=== PATIENT | female | born 1955 | race Caucasian/White ===

== ENCOUNTER 2024-09-22 12:57 | Inpatient (IN) | payer MEDICARE, SELFPAY ==
--- NOTE | ~2024-09-22 | CT_ITS ---
EXAMINATION: CT abdomen pelvis w con DATE: 09/22/2024 15:41 INDICATION: Lower abdominal pain TECHNIQUE: Computed tomography (CT) of the abdomen and pelvis was performed with 100 mL Omnipaque-350 intravenous contrast. Automated exposure control and iterative reconstruction technique were employe d. The dose-length product was 802.47 mGy-cm. COMPARISON: None FINDINGS: Mild discoid atelectasis at the basilar left lower lobe. Heart size is normal. No pericardial or pleu ral effusion. Small sliding-type hiatal hernia. Liver, gallbladder, spleen, pancreas and right adrena l gland are normal. 2.1 cm left adrenal nodule. There are parapelvic cysts at both kidneys along with couple subcentimeter low-attenuation likely cysts at the right kidney which are too small to definit ively characterize. Bladder, anteverted and retroflexed uterus and bilateral adnexa are unremarkable. There are small amount of free intraperitoneal gas underlying the right hemidiaphragm. Additional sma ll amounts of gas and nonloculated free intraperitoneal fluid are seen in the right lower quadrant no sameer region of the cecum. Stranding does not appear centered around the normal-appearing appendix. The re is edematous wall thickening of the adjacent terminal ileum. There are also multiple diverticula a long the sigmoid colon which also passes near the region of free fluid and gas. No bowel obstruction. No pathologically enlarged abdominal or pelvic lymphadenopathy. Mild to moderate upper lumbar predom inant spondylosis. Mild left and mild to moderate right hip osteoarthritis. IMPRESSION: 1. Small amount of free intraperineal gas and nonloculated free intraperitoneal fluid in the right pe lvis was performed on the cecum and terminal ileum, latter demonstrating some associated wall thicken ing. This most likely related to perforated diverticulitis. Differential includes acute appendicitis although the appendix appears normal and is located in the periphery of the region of stranding and w ould consider this less likely. Differential would also include terminal ileitis such as in the setti ng of Crohn's disease. 2. Small sliding-type hiatal hernia. Reviewed, dictated and finalized at location A. IMPRESSION: 1. Small amount of free intraperineal gas and nonloculated free intraperitoneal fluid in the right pelvis was performed on the cecum and terminal ileum, latte r demonstrating some associated wall thickening. This most likely related to pe rforated diverticulitis. Differential includes acute appendicitis although the appendix appears normal and is located in the periphery of the region of strand ing and would consider this less likely. Differential would also include termin al ileitis such as in the setting of Crohn's disease. 2. Small sliding-type hiatal hernia.
[2024-09-22 13:24] VITALS: BP 147/85; PULSE 130; RESP 20; TEMP 36.5; O2SAT 99
--- NOTE | 2024-09-22 13:28 | ECG_ITS ---
Test Date: 2024-09-22 13:32:13 Measurements Intervals [place] Rate: 118 P: 10 [place]: 112 QRS: -11 QRSD: 88 T: 12 QT: 301 QTc: 422 Interpretive Statements SINUS TACHYCARDIA VOLTAGE CRITERIA FOR LVH BORDERLINE R WAVE PROGRESSION, ANTERIOR LEADS MINIMAL Q WAVES- HIGH LATERAL LEADS BORDERLINE T WAVE ABNORMALITY- INFERIOR LEADS ABNORMAL ECG No previous ECG available for comparison Electronically Signed On 09-22-2024 14:29:41 CDT by Gulshan Toledo D.O.
[2024-09-22 14:37] LABS: Basophils Percent Auto 0.2 % (0.2-1.2); Eosinophils Percent Auto 0.2 % (0-4.4); Hematocrit 39.4 % (37.0-47.0); Hemoglobin 12.8 g/dL (12.0-15.0); Immature Granulocyte Absolute 0.06 K/mm3 (0.00-0.031); Immature Granulocyte Percent A 0.3 % (0-0.5); Lymphocytes Absolute Auto 0.77 K/mm3 (0.9-3.2); Lymphocytes Percent Auto 4.4 % (18.3-44.2); Mean Corpuscular HGB Conc 32.5 g/dl (32-36); Mean Corpuscular Hemoglobin 29.1 pg (26-34); Mean Corpuscular Volume 89.5 fl (80-100); Mean Platelet Volume 9.8 fl (7.4-10.4); Monocytes Absolute Auto 0.8 K/mm3 (0.1-0.6); Monocytes Percent Auto 4.8 % (2.6-8.5); Neutrophils Absolute Auto 15.6 K/mm3 (1.3-6.7); Neutrophils Percent Auto 90.1 % (45.5-73.1); Platelet Count Result 438 k/mm3 (150-375); Red Cell Distribution Width 12.8 % (11.5-14.5); White Blood Count 17.3 K/mm3 (4.5-10.0)
[2024-09-22] MEDS: MORPHINE SULFATE (*CRX) 4 MG/ML INJ IV PUSH (15:05)
[2024-09-22] MEDS: SODIUM CHLORIDE 0.9% IV 1,000 ML 999 ML IV CONT (15:05)
[2024-09-22] MEDS: ONDANSETRON INJ 4 MG/2 ML VIAL IV PUSH (15:05)
[2024-09-22 15:22] LABS: Alanine Aminotransferase 40 U/L (6-35); Albumin Level 4.2 g/dL (3.5-5.1); Alkaline Phosphatase 181 U/L (38-126); Anion Gap 16 mmol/L (4-12); Aspartate Amino Transferase 47 U/L (14-36); Blood Urea Nitrogen 14 mg/dL (7-17); Calcium 9.6 mg/dL (8.4-10.2); Carbon Dioxide 21 mmol/L (22-30); Chloride 100 mmol/L (98-107); Estimated CRCL calculation 59 ml/min; Estimated Glomerular Filt Rate 58; Glucose 114 mg/dL (65-110); Lipase 30 U/L (23-300); Potassium 3.9 mmol/L (3.4-5.0); Sodium 137 mmol/L (137-145); Total Protein 8.5 g/dL (6.3-8.2)
[2024-09-22 15:30] LABS: Add Urine Microscopic? YES; Appearance Urine Turbid (Clear); Bacteria Urine 4+ /hpf; Bilirubin Urine 2+ (Negative); Blood Urine Trace (Negative); Color Urine Dark Yellow (Yellow); Glucose Urine UA Negative (Negative); Ketones Urine 4+ mg/dL (Negative); Leukocyte Esterase Ur 2+ LEU/UL (Negative); Need Manual Microscopic Reviewed; Nitrate Urine Negative (Negative); Non Pathogenic Casts >20; Protein Urine 2+ mg/dL (Negative); Specific Grav Ur 1.027 (1.001-1.035); Squamous Epithelial Cell Urine Many /hpf (Few); WBC Urine 51-100 /hpf (0-3)
--- NOTE | 2024-09-22 16:06 | ED.ABDPAIN ---
HPI - Abdominal Pain General Chief Complaint: Abdominal Pain <SHIVAM Resendiz Last Filed: 09/22/24 17:09> Stated Complaint: abdominal pain since Friday. Nausea and diarrhea <SHIVAM Resendiz Last Filed: 09/22/24 17:09> Time Seen by Provider: 09/22/24 14:59 <Inocencia Melendez PA-C - Last Filed: 09/22/24 17:09> Source: patient <SHIVAM Resendiz Last Filed: 09/22/24 17:09> Mode of arrival: ambulatory <SHIVAM Resendiz Last Filed: 09/22/24 17:09> Limitations: no limitations <SHIVAM Resendiz Last Filed: 09/22/24 17:09> History of Present Illness HPI narrative: This is a 69-year-old female that presents emergency department for lower abdominal pain. Ongoing over the last 3 days. Reports is now localized to the right lower quadrant. Reports some diarrhea. Reports a similar episode a couple of weeks ago which resolved on its own. Denies fevers, vomiting <SHIVAM Resendiz Last Filed: 09/22/24 17:09> Related Data Allergies/Adverse Reactions: Allergies Allergy/AdvReac Type Severity Reaction Status Date / Time No Known Allergies Allergy Unverified 05/26/14 21:55 <Inocencia Melendez PA-C - Last Filed: 09/22/24 17:09> Review of Systems Review of Systems: All systems reviewed & are unremarkable except as noted in HPI and below <Inocencia Melendez PA-C - Last Filed: 09/22/24 17:09> PMFSH Past Medical History Medical History: Medical History (Updated 09/22/24 @ 17:45 by Adrienne Tan, GUILLERMO) No active medical problems <SHIVAM Resendiz Last Filed: 09/22/24 17:09> Exam Narrative: GENERAL: Well-appearing, well-nourished, and in no acute distress. HEAD: Normocephalic, atraumatic. EYES: EOMI. CHEST: Clear to auscultation. No respiratory distress. No wheezes rales or rhonchi HEART: Regular rate and rhythm. No murmur heard. Normal peripheral pulses. ABDOMEN: Soft, nontender, nondistended, normal active bowel sounds. EXTREMITIES: Normal range of motion. No edema. SKIN: Warm, dry, no rash. NEURO: No focal deficits. Alert and oriented x3. PSYCH: Normal mood and affect <Inocencia Melendez PA-C - Last Filed: 09/22/24 17:09> Course Course Emergency Course: Patient updated on her workup and need for admission <Inocencia Melendez PA-C - Last Filed: 09/22/24 17:09> ENTERTAINMENT AGENT/PA Physician Supervision This visit was performed by both a physician and an APC. I performed all aspects of the MDM as documented. <Duy Cruz MD - Last Filed: 09/22/24 19:08> Consultations Consultation #1: Spoke with general surgery who will consult <Inocencia Melendez PA-C - Last Filed: 09/22/24 17:09> Date: 09/22/24 <Inocencia Melendez PA-C - Last Filed: 09/22/24 17:09> Consultation #2: Spoke with hospitalist about patient and workup who accepts admission <Inocencia Melendez PA-C - Last Filed: 09/22/24 17:09> Date: 09/22/24 <SHIVAM Resendiz Last Filed: 09/22/24 17:09> Vital Signs Vital signs: Vital Signs Temperature 97.7 F 09/22/24 13:24 Pulse Rate 130 H 09/22/24 13:24 Respiratory Rate 20 09/22/24 13:24 Blood Pressure 147/85 H 09/22/24 13:24 Pulse Oximetry 99 09/22/24 13:24 Oxygen Delivery Room Air 09/22/24 13:24 Temperature 97.7 F 09/22/24 13:24 Pulse Rate 130 H 09/22/24 13:24 Respiratory Rate 20 09/22/24 13:24 Blood Pressure 147/85 H 09/22/24 13:24 Pulse Oximetry 99 09/22/24 13:24 Oxygen Delivery Room Air 09/22/24 13:24 <Inocencia Melendez PA-C - Last Filed: 09/22/24 17:09> Vital Signs Temperature 97.7 F 09/22/24 13:24 Pulse Rate 130 H 09/22/24 13:24 Respiratory Rate 20 09/22/24 13:24 Blood Pressure 147/85 H 09/22/24 13:24 Pulse Oximetry 99 09/22/24 13:24 Oxygen Delivery Room Air 09/22/24 13:24 Temperature 97.7 F 09/22/24 13:24 Pulse Rate 130 H 09/22/24 13:24 Respiratory Rate 20 09/22/24 13:24 Blood Pressure 147/85 H 09/22/24 13:24 Pulse Oximetry 99 09/22/24 13:24 Oxygen Delivery Room Air 09/22/24 13:24 <Duy Cruz MD - Last Filed: 09/22/24 19:08> MDM - Abdominal Pain MDM Narrative Medical decision making narrative: Patient presents to the emergency department for right lower quadrant abdominal pain. Ongoing over the last 3 days. Patient is afebrile and nontoxic appearing. Tachycardic upon arrival, this normalized with IV fluids. CBC with leukocytosis to 17.3. Metabolic panel with evidence of dehydration. Patient hydrated with 2 L of IV fluids in the ED. Urine with evidence of infection. This was sent for culture. Blood cultures obtained, patient started on IV antibiotics. Lactic acid is not elevated. CT abdomen pelvis shows perforated diverticulitis versus appendicitis. Spoke with general surgery who will consult. Spoke with hospitalist about patient and workup who accepts admission <Inocencia Melendez PA-C - Last Filed: 09/22/24 17:09> Differential Diagnosis Differential diagnosis: Likely acute appendicitis and diverticulitis <Inocencia Melendez PA-C - Last Filed: 09/22/24 17:09> Lab Data Attestation: I reviewed the patient's lab results. <Inocencia Melendez PA-C - Last Filed: 09/22/24 17:09> Result diagrams: 09/22/24 14:30 09/22/24 15:04 <Inocencia Melendez PA-C - Last Filed: 09/22/24 17:09> Labs: Lab Results 09/22/24 09/22/24 09/22/24 Range/Units 14:30 15:02 15:04 WBC 17.3 H (4.5-10.0) K/mm3 RBC 4.40 (4.2-5.4) M/mm3 Hgb 12.8 (12.0-15.0) g/dL Hct 39.4 (37.0-47.0) % MCV 89.5 (80-100) fl MCH 29.1 (26-34) pg MCHC 32.5 (32-36) g/dl RDW 12.8 (11.5-14.5) % Plt Count 438 H (150-375) k/mm3 MPV 9.8 (7.4-10.4) fl Immature Gran % (Auto) 0.3 (0-0.5) % Neut % (Auto) 90.1 H (45.5-73.1) % Lymph % (Auto) 4.4 L (18.3-44.2) % [place] % (Auto) 4.8 (2.6-8.5) % Eos % (Auto) 0.2 (0-4.4) % Baso % (Auto) 0.2 (0.2-1.2) % Lymph # (Auto) 0.77 L (0.9-3.2) K/mm3 [place] # (Auto) 0.8 H (0.1-0.6) K/mm3 Eos # (Auto) 0.0 (0-0.3) K/mm3 Baso # (Auto) 0.0 (0.0-0.1) K/mm3 Abs Immat Gran (auto) 0.06 H (0.00-0.031) K/mm3 Absolute Neuts (auto) 15.6 H (1.3-6.7) K/mm3 Absolute Nucleated RBC 0.000 (0.0-0.012) K/mm3 Nucleated RBC % 0.0 (0.0-0.2) % Sodium 137 (137-145) mmol/L Potassium 3.9 (3.4-5.0) mmol/L Chloride 100 (98-107) mmol/L Carbon Dioxide 21 L (22-30) mmol/L Anion Gap 16 H (4-12) mmol/L BUN 14 (7-17) mg/dL Creatinine 0.95 (0.7-1.0) mg/dL Estim Creat Clear Calc 59 ml/min Estimated GFR 58 L (59 - ) Glucose 114 H (65-110) mg/dL Lactic Acid (0.7-2.0) mmol/L Calcium 9.6 (8.4-10.2) mg/dL Total Bilirubin 1.0 (0.2-1.3) mg/dL AST 47 H (14-36) U/L ALT 40 H (6-35) U/L Alkaline Phosphatase 181 H (38-126) U/L Total Protein 8.5 H (6.3-8.2) g/dL Albumin 4.2 (3.5-5.1) g/dL Lipase 30 (23-300) U/L Urine Color Dark yellow (Yellow) Urine Appearance Turbid H (Clear) Urine pH 5.0 (5.0-9.0) Ur Specific [place] 1.027 (1.001-1.035) Urine Protein 2+ H (Negative) mg/dL Urine Glucose (UA) Negative (Negative) mg/dL Urine Ketones 4+ H (Negative) mg/dL Ur Blood (Man) Trace (Negative) Urine Nitrate Negative (Negative) Urine Bilirubin 2+ H (Negative) Urine Urobilinogen 1.0 (<2.0) mg/dL Add Ur Microanalysis Reviewed Leukocyte Esterase Rfl 2+ H (Negative) VANNESSA/UL Urine RBC 6-10 H (0-2) /hpf Urine WBC 51-100 H (0-3) /hpf Ur Squamous Epith Cells Many H (Few) /hpf Urine Bacteria 4+ H /hpf Urine Casts >20 06/25/25 Range/Units 16:07 WBC (4.5-10.0) K/mm3 RBC (4.2-5.4) M/mm3 Hgb (12.0-15.0) g/dL Hct (37.0-47.0) % MCV (80-100) fl MCH (26-34) pg MCHC (32-36) g/dl RDW (11.5-14.5) % Plt Count (150-375) k/mm3 MPV (7.4-10.4) fl Immature Gran % (Auto) (0-0.5) % Neut % (Auto) (45.5-73.1) % Lymph % (Auto) (18.3-44.2) % [place] % (Auto) (2.6-8.5) % Eos % (Auto) (0-4.4) % Baso % (Auto) (0.2-1.2) % Lymph # (Auto) (0.9-3.2) K/mm3 [place] # (Auto) (0.1-0.6) K/mm3 Eos # (Auto) (0-0.3) K/mm3 Baso # (Auto) (0.0-0.1) K/mm3 Abs Immat Gran (auto) (0.00-0.031) K/mm3 Absolute Neuts (auto) (1.3-6.7) K/mm3 Absolute Nucleated RBC (0.0-0.012) K/mm3 Nucleated RBC % (0.0-0.2) % Sodium (137-145) mmol/L Potassium (3.4-5.0) mmol/L Chloride (98-107) mmol/L Carbon Dioxide (22-30) mmol/L Anion Gap (4-12) mmol/L BUN (7-17) mg/dL Creatinine (0.7-1.0) mg/dL Estim Creat Clear Calc ml/min Estimated GFR (59 - ) Glucose (65-110) mg/dL Lactic Acid 0.9 (0.7-2.0) mmol/L Calcium (8.4-10.2) mg/dL Total Bilirubin (0.2-1.3) mg/dL AST (14-36) U/L ALT (6-35) U/L Alkaline Phosphatase (38-126) U/L Total Protein (6.3-8.2) g/dL Albumin (3.5-5.1) g/dL Lipase (23-300) U/L Urine Color (Yellow) Urine Appearance (Clear) Urine pH (5.0-9.0) Ur Specific [place] (1.001-1.035) Urine Protein (Negative) mg/dL Urine Glucose (UA) (Negative) mg/dL Urine Ketones (Negative) mg/dL Ur Blood (Man) (Negative) Urine Nitrate (Negative) Urine Bilirubin (Negative) Urine Urobilinogen (<2.0) mg/dL Add Ur Microanalysis Leukocyte Esterase Rfl (Negative) VANNESSA/UL Urine RBC (0-2) /hpf Urine WBC (0-3) /hpf Ur Squamous Epith Cells (Few) /hpf Urine Bacteria /hpf Urine Casts <Inocencia Melendez PA-C - Last Filed: 09/22/24 17:09> Lab Results 09/22/24 09/22/24 09/22/24 Range/Units 14:30 15:02 15:04 WBC 17.3 H (4.5-10.0) K/mm3 RBC 4.40 (4.2-5.4) M/mm3 Hgb 12.8 (12.0-15.0) g/dL Hct 39.4 (37.0-47.0) % MCV 89.5 (80-100) fl MCH 29.1 (26-34) pg MCHC 32.5 (32-36) g/dl RDW 12.8 (11.5-14.5) % Plt Count 438 H (150-375) k/mm3 MPV 9.8 (7.4-10.4) fl Immature Gran % (Auto) 0.3 (0-0.5) % Neut % (Auto) 90.1 H (45.5-73.1) % Lymph % (Auto) 4.4 L (18.3-44.2) % [place] % (Auto) 4.8 (2.6-8.5) % Eos % (Auto) 0.2 (0-4.4) % Baso % (Auto) 0.2 (0.2-1.2) % Lymph # (Auto) 0.77 L (0.9-3.2) K/mm3 [place] # (Auto) 0.8 H (0.1-0.6) K/mm3 Eos # (Auto) 0.0 (0-0.3) K/mm3 Baso # (Auto) 0.0 (0.0-0.1) K/mm3 Abs Immat Gran (auto) 0.06 H (0.00-0.031) K/mm3 Absolute Neuts (auto) 15.6 H (1.3-6.7) K/mm3 Absolute Nucleated RBC 0.000 (0.0-0.012) K/mm3 Nucleated RBC % 0.0 (0.0-0.2) % Sodium 137 (137-145) mmol/L Potassium 3.9 (3.4-5.0) mmol/L Chloride 100 (98-107) mmol/L Carbon Dioxide 21 L (22-30) mmol/L Anion Gap 16 H (4-12) mmol/L BUN 14 (7-17) mg/dL Creatinine 0.95 (0.7-1.0) mg/dL Estim Creat Clear Calc 59 ml/min Estimated GFR 58 L (59 - ) Glucose 114 H (65-110) mg/dL Lactic Acid (0.7-2.0) mmol/L Calcium 9.6 (8.4-10.2) mg/dL Total Bilirubin 1.0 (0.2-1.3) mg/dL AST 47 H (14-36) U/L ALT 40 H (6-35) U/L Alkaline Phosphatase 181 H (38-126) U/L Total Protein 8.5 H (6.3-8.2) g/dL Albumin 4.2 (3.5-5.1) g/dL Lipase 30 (23-300) U/L Urine Color Dark yellow (Yellow) Urine Appearance Turbid H (Clear) Urine pH 5.0 (5.0-9.0) Ur Specific [place] 1.027 (1.001-1.035) Urine Protein 2+ H (Negative) mg/dL Urine Glucose (UA) Negative (Negative) mg/dL Urine Ketones 4+ H (Negative) mg/dL Ur Blood (Man) Trace (Negative) Urine Nitrate Negative (Negative) Urine Bilirubin 2+ H (Negative) Urine Urobilinogen 1.0 (<2.0) mg/dL Add Ur Microanalysis Reviewed Leukocyte Esterase Rfl 2+ H (Negative) VANNESSA/UL Urine RBC 6-10 H (0-2) /hpf Urine WBC 51-100 H (0-3) /hpf Ur Squamous Epith Cells Many H (Few) /hpf Urine Bacteria 4+ H /hpf Urine Casts >20 06/25/25 Range/Units 16:07 WBC (4.5-10.0) K/mm3 RBC (4.2-5.4) M/mm3 Hgb (12.0-15.0) g/dL Hct (37.0-47.0) % MCV (80-100) fl MCH (26-34) pg MCHC (32-36) g/dl RDW (11.5-14.5) % Plt Count (150-375) k/mm3 MPV (7.4-10.4) fl Immature Gran % (Auto) (0-0.5) % Neut % (Auto) (45.5-73.1) % Lymph % (Auto) (18.3-44.2) % [place] % (Auto) (2.6-8.5) % Eos % (Auto) (0-4.4) % Baso % (Auto) (0.2-1.2) % Lymph # (Auto) (0.9-3.2) K/mm3 [place] # (Auto) (0.1-0.6) K/mm3 Eos # (Auto) (0-0.3) K/mm3 Baso # (Auto) (0.0-0.1) K/mm3 Abs Immat Gran (auto) (0.00-0.031) K/mm3 Absolute Neuts (auto) (1.3-6.7) K/mm3 Absolute Nucleated RBC (0.0-0.012) K/mm3 Nucleated RBC % (0.0-0.2) % Sodium (137-145) mmol/L Potassium (3.4-5.0) mmol/L Chloride (98-107) mmol/L Carbon Dioxide (22-30) mmol/L Anion Gap (4-12) mmol/L BUN (7-17) mg/dL Creatinine (0.7-1.0) mg/dL Estim Creat Clear Calc ml/min Estimated GFR (59 - ) Glucose (65-110) mg/dL Lactic Acid 0.9 (0.7-2.0) mmol/L Calcium (8.4-10.2) mg/dL Total Bilirubin (0.2-1.3) mg/dL AST (14-36) U/L ALT (6-35) U/L Alkaline Phosphatase (38-126) U/L Total Protein (6.3-8.2) g/dL Albumin (3.5-5.1) g/dL Lipase (23-300) U/L Urine Color (Yellow) Urine Appearance (Clear) Urine pH (5.0-9.0) Ur Specific [place] (1.001-1.035) Urine Protein (Negative) mg/dL Urine Glucose (UA) (Negative) mg/dL Urine Ketones (Negative) mg/dL Ur Blood (Man) (Negative) Urine Nitrate (Negative) Urine Bilirubin (Negative) Urine Urobilinogen (<2.0) mg/dL Add Ur Microanalysis Leukocyte Esterase Rfl (Negative) VANNESSA/UL Urine RBC (0-2) /hpf Urine WBC (0-3) /hpf Ur Squamous Epith Cells (Few) /hpf Urine Bacteria /hpf Urine Casts <Duy Cruz MD - Last Filed: 09/22/24 19:08> Imaging Data Radiologist's impression: ITS Impressions Abdomen/Pelvis CT 09/22/24 15:42 IMPRESSION: 1. Small amount of free intraperineal gas and nonloculated free intraperitoneal fluid in the right pelvis was performed on the cecum and terminal ileum, latter demonstrating some associated wall thickening. This most likely related to perforated diverticulitis. Differential includes acute appendicitis although the appendix appears normal and is located in the periphery of the region of stranding and would consider this less likely. Differential would also include terminal ileitis such as in the setting of Crohn's disease. 2. Small sliding-type hiatal hernia. <Inocencia Melendez PA-C - Last Filed: 09/22/24 17:09> ITS Impressions Abdomen/Pelvis CT 09/22/24 15:42 IMPRESSION: 1. Small amount of free intraperineal gas and nonloculated free intraperitoneal fluid in the right pelvis was performed on the cecum and terminal ileum, latter demonstrating some associated wall thickening. This most likely related to perforated diverticulitis. Differential includes acute appendicitis although the appendix appears normal and is located in the periphery of the region of stranding and would consider this less likely. Differential would also include terminal ileitis such as in the setting of Crohn's disease. 2. Small sliding-type hiatal hernia. <Duy Cruz MD - Last Filed: 09/22/24 19:08> Critical Care Time Critical Care Time Critical Care Time: No <SHIVAM Resendiz Last Filed: 09/22/24 17:09> Discharge Plan Discharge Clinical Impression: Diverticulitis of colon with perforation <SHIVAM Resendiz Last Filed: 09/22/24 17:09> Patient Disposition: Still a Patient <SHIVAM Resendiz Last Filed: 09/22/24 17:09> Condition: Stable <Inocencia Melendez PA-C - Last Filed: 09/22/24 17:09>
[2024-09-22] MEDS: LACTATED RINGERS 1,000 ML 999 ML IV CONT (16:21)
[2024-09-22] MEDS: PIPERACILLN/TAZ 3.375GM/NS50ML 3.375 GM/50 ML BAG IVPB (16:22)
[2024-09-22 16:26] LABS: Lactic Acid Reflex 0.9 mmol/L (0.7-2.0)
--- NOTE | 2024-09-22 17:10 | P.HP_ITS ---
H&P: HPI History of Present Illness Date/Time: 09/22/24 17:10 Chief Complaint: Abdominal Pain Narrative: 69 y/o F with no significant PMH presents here with lower abdominal pain. The patient presents here from home for further evaluation of right lower quadrant abdominal pain. She reports onset 2 days ago. Initially the pain was across her entire lower abdomen, as time has progressed it has moved to adjust the right lower quadrant. She describes the pain as dull, radiating/nonradiating, constant but can vary in severity, aggravated by ambulation - becomes sharper, and alleviated by rest/lack of movement. She reports she had a similar episode in early July but resolved without intervention and patient was not evaluated at that time - lasted around 4-5 days. She reports accompanying a few episodes of diarrhea on Friday when symptoms first started but has since resolved. Denies fever, chills, body aches, constipation or diaphoresis. She reports no hisotry of abdominal surgery history or signi ficant GI history. Initial VS at presentation: 97.7? F, HR 130, R 20, 147/85, and 99% on RA. ED workup showed: WBC 7 3.3, glucose 114, lactic 0.9, creatinine 0.95 and GFR 58, AST 47/ALT 40, UA showed contaminant versus infection. CT of the abdomen/pelvis showed small amount of free intraperineal gas and nonloculated free intraperitoneal fluid in the right pelvis was performed on the cecum and terminal ileum, latter demonstrating some associated wall thickening. This most likely related to perforated diverticulitis and a small sliding-type hiatal hernia. Review of Systems Review of Systems: All systems reviewed & are unremarkable except as noted in HPI and below [facility] Past Medical History Medical History No active medical problems Social History Social History Alcohol intake: never Substance use: never Substance use type: does not use Do You Feel Safe in your Home?: Yes Lack of Transportation: No Lack of Food: Never True Current Housing: I Have Housing Concerned About Future Housing: No Difficulty Paying Gas/Electric Bills: No Difficulty Paying for Meds: No Currently Unemployed: No Education: Master's Degree or Higher Difficulty w/ Childcare or Family Care: No Spiritual care concerns: No Meds Home Medications and Allergies Home Medications ?Medication ?Instructions ?Recorded ?Confirmed ?Type No Home Medications 09/22/24 09/22/24 History Allergies Allergy/AdvReac Type Severity Reaction Status Date / Time No Known Allergies Allergy Unverified 05/26/14 21:55 Vital Signs Vital Signs - 24 hr 09/22/24 13:24 Temperature 97.7 F Pulse Rate 130 H Respiratory Rate 20 Blood Pressure 147/85 H Pulse Oximetry 99 Oxygen Delivery Room Air Exam Const: General: comfortable and no acute distress Other: , female, nontoxic appearance HENMT: Face/Nose/Sinus: Normal nares present Mouth: Yes moist mucous membranes Eyes: General: appearance normal, both eyes and all related structures Sclera: sclerae normal Pupils: Equal, round and reactive pupils present EOM: EOMs intact bilaterally Resp: Effort & Inspection: normal respiratory effort Auscultation: clear to auscultation bilaterally Cardio: Rate: regular rate Rhythm: regular rhythm Other: S1-S2 present without murmur, rub, ectopy GI: Other: mild tenderness in the RLQ. Abdomen soft and nondistended. Hypoactive bowel sounds in all quadrants, quiet. Skin: General skin exam: normal color and no rashes or lesions noted Wounds: no wounds Neuro: Speech: normal speech Motor exam (neuro): 5/5 motor strength present throughout Sensory Exam: normal sensation Other: A&O x4 Extrem: General: normal to inspection Psych: Mental Status: mental status grossly normal Affect: normal affect Other: Good insight and judgment, pleasant H&P: Results Labs Labs: Short CBC 09/22/24 Range/Units 14:30 WBC 17.3 H (4.5-10.0) K/mm3 Hgb 12.8 (12.0-15.0) g/dL Hct 39.4 (37.0-47.0) % Plt Count 438 H (150-375) k/mm3 BMP 09/22/24 15:04 Sodium 137 Potassium 3.9 Chloride 100 Carbon Dioxide 21 L BUN 14 Creatinine 0.95 Glucose 114 H Calcium 9.6 Liver Function 09/22/24 Range/Units 15:04 Total Bilirubin 1.0 (0.2-1.3) mg/dL AST 47 H (14-36) U/L ALT 40 H (6-35) U/L Alkaline Phosphatase 181 H (38-126) U/L Albumin 4.2 (3.5-5.1) g/dL Urine 09/22/ Range/Units 15:02 Urine Color Dark yellow (Yellow) Urine Appearance Turbid H (Clear) Urine pH 5.0 (5.0-9.0) Ur Specific [place] 1.027 (1.001-1.035) Urine Protein 2+ H (Negative) mg/dL Urine Glucose (UA) Negative (Negative) mg/dL Assessment and Plan Assessment and plan (1) Diverticulitis of colon with perforation: Code(s): K57.20 - Diverticulitis of large intestine with perforation and abscess without bleeding Status: Acute Assessment and Plan: - CT abd/pelvis: 1. Small amount of free intraperineal gas and nonloculated free intraperitoneal fluid in the right pelvis was performed on the cecum and terminal ileum, latter demonstrating some associated wall thickening. This most likely related to perforated diverticulitis. Differential includes acute appendicitis although the appendix appears normal and is located in the periphery of the region of stranding and would consider this less likely. Differential would also include terminal ileitis such as in the setting of Crohn's disease. 2. Small sliding-type hiatal hernia. - started on Zosyn on 09/22 - general surgery consulted - IV fluids: 1L bolus, now on 125 mL/hr. Monitor I&Os. - clear liquid diet, NPO at midnight in case of need for surgical management - pain medication prn - daily clinical reassessment for improvement (2) UTI (urinary tract infection): Qualifiers: Hematuria presence: without hematuria Urinary tract infection type: acute cystitis Qualified Code(s): N30.00 - Acute cystitis without hematuria Code(s): N39.0 - Urinary tract infection, site not specified Status: Suspected Assessment and Plan: - UA: Turbid, 2+ protein, 4+ ketones stoma 2+ bilirubin, 2+ leuks, 6-10 RBC, 51-100 WBC, many epithelial cells, 4+ bacteria. Contaminant versus infection. - UC pending - previous micro reviewed, not available for review - started on Zosyn on 09/22 due to concurrent diverticulitis with perforation. Plan Diet: Clear liquids, NPO midnight GI Prophylaxis: Not currently applicable DVT Prophylaxis: SCDs IV fluids: 1L bolus, now on 125 mL/hr Lines/Tubes: Peripheral IV Code Status: Full code Quality VTE Prophylaxis VTE prophylaxis: mechanical ordered Hospitalist MIPS Advance Care Plan I have confirmed that the patient's Advanced Care Plan is present, code status is documented, or surrogate decision maker is listed in patient medical record.: Yes Medication Reconciliation I have utilized all available resources to obtain, update and review the patients current medications (includes all prescriptions, OTC, herbals, cannabis, and nutritional supplements).: Yes
--- NOTE | 2024-09-22 18:20 | PC.NURSE ---
This patient, Cristiana Schwarz, was admitted to [facility] Surg Room 313-01 at 1820. Patient/family oriented to hospital policies and general routines including ID bracelet, bed and alarms, visiting hours, pain management, procedures, bathroom and other care routines, personal items, smoking policy, room service/diet, and visiting hours. Information on how to activate the Rapid Response Team has been discussed. Patient/Family are encouraged to report perceived risks to care and to ask questions if they do not understand what they are told or what they should do.
[2024-09-22] MEDS: SODIUM CHLORIDE 0.9% IV 1,000 ML 125 ML IV CONT (18:34)
[2024-09-22 19:06] VITALS: BMI 31.9
[2024-09-22 21:00] VITALS: BP 154/88; PULSE 98; RESP 20; TEMP 36.6; O2SAT 97
[2024-09-23] MEDS: PIPERACILLN/TAZ 3.375GM/NS50ML 3.375 GM/50 ML BAG IVPB ×4 (00:31→17:45)
[2024-09-23] MEDS: SODIUM CHLORIDE 0.9% IV 1,000 ML 125 ML IV CONT ×2 (02:48→11:37)
--- NOTE | 2024-09-23 03:15 | PC.NURSE ---
On 09/23/24, the Graduate Nurse, Magali, provided care and completed [employer] documentation on this patient with this nurse available for questions and supervised care. I have reviewed Magali's documentation and agree with the findings.
[2024-09-23 06:00] VITALS: BP 121/56; PULSE 74; RESP 16; TEMP 36.1; O2SAT 100
[2024-09-23 06:46] LABS: Basophils Percent Auto 0.2 % (0.2-1.2); Eosinophils Absolute Auto 0.1 K/mm3 (0-0.3); Eosinophils Percent Auto 1.1 % (0-4.4); Hematocrit 32.6 % (37.0-47.0); Hemoglobin 10.1 g/dL (12.0-15.0); Immature Granulocyte Absolute 0.07 K/mm3 (0.00-0.031); Immature Granulocyte Percent A 0.6 % (0-0.5); Lymphocytes Absolute Auto 1.27 K/mm3 (0.9-3.2); Lymphocytes Percent Auto 11.7 % (18.3-44.2); Mean Corpuscular Hemoglobin 28.8 pg (26-34); Mean Corpuscular Volume 92.9 fl (80-100); Monocytes Absolute Auto 0.8 K/mm3 (0.1-0.6); Monocytes Percent Auto 7.7 % (2.6-8.5); Neutrophils Absolute Auto 8.5 K/mm3 (1.3-6.7); Neutrophils Percent Auto 78.7 % (45.5-73.1); Platelet Count Result 300 k/mm3 (150-375); Red Blood Count 3.51 M/mm3 (4.2-5.4); Red Cell Distribution Width 12.9 % (11.5-14.5); White Blood Count 10.8 K/mm3 (4.5-10.0)
[2024-09-23 07:15] LABS: Alanine Aminotransferase 26 U/L (6-35); Albumin Level 3.4 g/dL (3.5-5.1); Alkaline Phosphatase 155 U/L (38-126); Aspartate Amino Transferase 35 U/L (14-36); Bilirubin,Total 0.7 mg/dL (0.2-1.3); Blood Urea Nitrogen 12 mg/dL (7-17); Calcium 8.7 mg/dL (8.4-10.2); Chloride 105 mmol/L (98-107); Estimated CRCL calculation 62 ml/min; Estimated Glomerular Filt Rate > 60; Glucose 90 mg/dL (65-110); Magnesium 2.2 mg/dL (1.6-2.3); Potassium 3.8 mmol/L (3.4-5.0); Sodium 137 mmol/L (137-145)
--- NOTE | 2024-09-23 08:17 | P.CONGS_ITS ---
Assessment and Plan Assessment and plan (1) Diverticulitis of colon with perforation: Code(s): K57.20 - Diverticulitis of large intestine with perforation and abscess without bleeding Status: Acute Assessment and Plan: * Patient presents with RLQ abdominal pain x 3 days. This is her second episode of pain after having similar pain in early July that resolved without any treatment. CT scan showed small amount of free intraperitoneal air and fluid in the right pelvis with inflammatory stranding and edematous wall thickening of an adjacent segment of terminal ileum. The appendix appears normal and is not near the area of inflammation and fluid. There is sigmoid diverticulosis noted that passes near the region of the free fluid and gas, concerning for perforated diverticulitis. Differentials would include perforated diverticulitis, Crohn's disease/terminal ileitis with perforation, malignancy, or less likely perforated appendicitis given the normal-appearing appendix. There is no larger fluid collection that would need drained and she does not have an acute surgical abdomen or any indication for urgent surgical intervention. Will try to review the CT scan with the Radiologist later today. We would recommend to treat with broad-spectrum IV antibiotics and bowel rest for now. May consider advancing to clear liquids today. Continue to closely monitor with serial abdominal exams and labs. I discussed with the patient that she will eventually need a colonoscopy about 4-6 weeks after resolution of this acute process since she has never had a colonoscopy in the past. We discussed all possible differentials and her questions were answered. (2) UTI (urinary tract infection): Qualifiers: Hematuria presence: without hematuria Urinary tract infection type: a cute cystitis Qualified Code(s): N30.00 - Acute cystitis without hematuria Code(s): N39.0 - Urinary tract infection, site not specified Status: Suspected Assessment and Plan: * UA abnormal, would expect this to be sent for reflex culture but do not see these results as of yet. No urinary symptoms. Management per Hospitalist. Plan I have discussed the patient's case and plan of care with Dr. Shi. History of Present Illness Consult details Consult date: 09/23/24 Reason for consult: other (Perforated diverticulitis) Requesting physician: Adrienne Tan APRN Narrative: This is a 69-year-old with no known past medical history, who we have been asked to see in surgical consultation for possible perforated diverticulitis. She reports an onset of diffuse lower abdominal pain on Friday, 3 days ago. That day she did notice one episode of a loose stool, but had BM that was more formed later in the day. By the following day, her pain localized to the RLQ. She had a similar episode of pain about 1.5 months ago. Her pain then started in the lower abdomen and then localized to the RLQ within a day or two. She wasn't eating due to the pain and was essentially on bowel rest for 3-4 days and reports her pain eventually resolved within a few days. This time, her pain became more severe yesterday and prompted her to come into the ED for evaluation. She denies nausea, vomiting, fever, chills, or any other associated symptoms. Workup in the ED showed a WBC count of 17,300 and mildly elevated LFTs with AST 47, ALT 40, and alk phos 181. Lactic acid 0.9. UA abnormal. CT scan of the abdomen/pelvis showed small amount of free intraperitoneal air and non-loculated free fluid in the right pelvis with inflammatory stranding and edematous wall thickening of the adjacent terminal ileum with multiple diverticula along the sigmoid colon, which also passes near the region of the free fluid and gas, no bowel obstruction. The inflammation does not appear to be centered around the normal-appearing appendix. She was tachycardic in the ER in the 130's, which has normalized with IV fluids. She has been afebrile and other vital signs stable. She was started on IV Zosyn and admitted to the Hospitalist service. The patient denies any medical or surgical history, although has not seen a physician in well over 10 years. She cannot recall the last time she has been seen for any medical issue. She denies every having a colonoscopy or Cologuard. Review of Systems 2 Review of Systems: All systems reviewed & are unremarkable except as noted in HPI and below [facility] Past Medical History Medical History No active medical problems Surgical History Surgical History No pertinent past surgical history Social History Social History Smoking status: Never smoker Alcohol intake: never Substance use: never Substance use type: does not use Do You Feel Safe in your Home?: Yes Lack of Transportation: No Lack of Food: Never True Current Housing: I Have Housing Concerned About Future Housing: No Difficulty Paying Gas/Electric Bills: No Difficulty Paying for Meds: No Currently Unemployed: No Education: Master's Degree or Higher Difficulty w/ Childcare or Family Care: No Spiritual care concerns: No Meds Home Medications and Allergies Home Medications ?Medication ?Instructions ?Recorded ?Confirmed ?Type No Home Medications 09/22/24 09/22/24 History Allergies Allergy/AdvReac Type Severity Reaction Status Date / Time fluticasone (From Advair Allergy Hives Verified 09/22/24 23:16 Diskus) salmeterol (From Advair Allergy Hives Verified 09/22/24 23:16 Diskus) Vital Signs Vital Signs - 24 hr 09/22/24 13:24 09/22/24 21:00 09/22/24 21:30 Temperature 97.7 F 97.8 F Pulse Rate 130 H 98 Respiratory Rate 20 20 Blood Pressure 147/85 H 154/88 H Pulse Oximetry 99 97 Oxygen Delivery Room Air Room Air 09/23/24 06:00 Temperature 96.9 F L Pulse Rate 74 Respiratory Rate 16 Blood Pressure 121/56 L Pulse Oximetry 100 Oxygen Delivery Exam 2 Const: General: comfortable and no acute distress Nutritional Appearance: o verweight Orientation/consciousness: patient oriented x3 HENMT: Head: normocephalic and atraumatic Ears: hearing grossly normal bilaterally Mouth: Yes moist mucous membranes Eyes: General: appearance normal, both eyes and all related structures P upils: Equal, round and reactive pupils present Neck: Neck: normal visual inspection and full ROM Resp: Effort & Inspection: no respiratory distress Auscultation: clear to auscultation bilaterally Cardio: Rate: regular rate Rhythm: regular rhythm Peripheral pulses: P eripheral pulses 2+ throughout GI: Inspection: no scars Auscultation: normal bowel sounds Other: Abdomen nondistended and soft with mild diffuse tenderness across the upper abdomen and she is exquisitely tender across the lower abdomen with guarding. No rebound or diffuse peritoneal signs. Skin: General skin exam: normal color Neuro: General: moves all extremities and no focal motor deficits Speech: n ormal speech Motor exam (neuro): 5/5 motor strength present throughout Extrem: General: normal to inspection and no edema Psych: Mental Status: mental status grossly normal Attitude: cooperative Insight: Good insight present (Psych) Judgement: Good judgement present (Psych) Results Labs 09/23/24 06:11 09/23/24 06:11 Labs: Abnormal lab results 09/22/24 09/22/24 09/22/24 Range/Units 14:30 15:02 15:04 WBC 17.3 H (4.5-10.0) K/mm3 RBC (4.2-5.4) M/mm3 Hgb (12.0-15.0) g/dL Hct (37.0-47.0) % MCHC (32-36) g/dl Plt Count 438 H (150-375) k/mm3 Immature Gran % (Auto) (0-0.5) % Neut % (Auto) 90.1 H (45.5-73.1) % Lymph % (Auto) 4.4 L (18.3-44.2) % Lymph # (Auto) 0.77 L (0.9-3.2) K/mm3 [place] # (Auto) 0.8 H (0.1-0.6) K/mm3 Abs Immat Gran (auto) 0.06 H (0.00-0.031) K/mm3 Absolute Neuts (auto) 15.6 H (1.3-6.7) K/mm3 Carbon Dioxide 21 L (22-30) mmol/L Anion Gap 16 H (4-12) mmol/L Estimated GFR 58 L (59 - ) Glucose 114 H (65-110) mg/dL AST 47 H (14-36) U/L ALT 40 H (6-35) U/L Alkaline Phosphatase 181 H (38-126) U/L Total Protein 8.5 H (6.3-8.2) g/dL Albumin (3.5-5.1) g/dL Urine Appearance Turbid H (Clear) Urine Protein 2+ H (Negative) mg/dL Urine Ketones 4+ H (Negative) mg/dL Urine Bilirubin 2+ H (Negative) Leukocyte Esterase Rfl 2+ H (Negative) VANNESSA/UL Urine RBC 6-10 H (0-2) /hpf Urine WBC 51-100 H (0-3) /hpf Ur Squamous Epith Cells Many H (Few) /hpf Urine Bacteria 4+ H /hpf 09/23/24 Range/Units 06:11 WBC 10.8 H (4.5-10.0) K/mm3 RBC 3.51 L (4.2-5.4) M/mm3 Hgb 10.1 L (12.0-15.0) g/dL Hct 32.6 L (37.0-47.0) % MCHC 31.0 L (32-36) g/dl Plt Count (150-375) k/mm3 Immature Gran % (Auto) 0.6 H (0-0.5) % Neut % (Auto) 78.7 H (45.5-73.1) % Lymph % (Auto) 11.7 L (18.3-44.2) % Lymph # (Auto) (0.9-3.2) K/mm3 [place] # (Auto) 0.8 H (0.1-0.6) K/mm3 Abs Immat Gran (auto) 0.07 H (0.00-0.031) K/mm3 Absolute Neuts (auto) 8.5 H (1.3-6.7) K/mm3 Carbon Dioxide (22-30) mmol/L Anion Gap (4-12) mmol/L Estimated GFR (59 - ) Glucose (65-110) mg/dL AST (14-36) U/L ALT (6-35) U/L Alkaline Phosphatase 155 H (38-126) U/L Total Protein (6.3-8.2) g/dL Albumin 3.4 L (3.5-5.1) g/dL Urine Appearance (Clear) Urine Protein (Negative) mg/dL Urine Ketones (Negative) mg/dL Urine Bilirubin (Negative) Leukocyte Esterase Rfl (Negative) [place]/UL Urine RBC (0-2) /hpf Urine WBC (0-3) /hpf Ur Squamous Epith Cells (Few) /hpf Urine Bacteria /hpf Diabetes panel 09/22/24 09/23/24 Range/Units 15:04 06:11 Sodium 137 137 (137-145) mmol/L Potassium 3.9 3.8 (3.4-5.0) mmol/L Chloride 100 105 (98-107) mmol/L Carbon Dioxide 21 L (22-30) mmol/L BUN 14 12 (7-17) mg/dL Creatinine 0.95 0.86 (0.7-1.0) mg/dL Glucose 114 H 90 (65-110) mg/dL Calcium 9.6 8.7 (8.4-10.2) mg/dL AST 47 H 35 (14-36) U/L ALT 40 H 26 (6-35) U/L Alkaline Phosphatase 181 H 155 H (38-126) U/L Total Protein 8.5 H 7.0 (6.3-8.2) g/dL Albumin 4.2 3.4 L (3.5-5.1) g/dL Calcium panel 09/22/24 09/23/24 Range/Units 15:04 06:11 Calcium 9.6 8.7 (8.4-10.2) mg/dL Albumin 4.2 3.4 L (3.5-5.1) g/dL Pituitary panel 09/22/24 09/23/24 Range/Units 15:04 06:11 Sodium 137 137 (137-145) mmol/L Potassium 3.9 3.8 (3.4-5.0) mmol/L Chloride 100 105 (98-107) mmol/L Carbon Dioxide 21 L (22-30) mmol/L BUN 14 12 (7-17) mg/dL Creatinine 0.95 0.86 (0.7-1.0) mg/dL Glucose 114 H 90 (65-110) mg/dL Calcium 9.6 8.7 (8.4-10.2) mg/dL Adrenal panel 09/22/24 09/23/24 Range/Units 15:04 06:11 Sodium 137 137 (137-145) mmol/L Potassium 3.9 3.8 (3.4-5.0) mmol/L Chloride 100 105 (98-107) mmol/L Carbon Dioxide 21 L (22-30) mmol/L BUN 14 12 (7-17) mg/dL Creatinine 0.95 0.86 (0.7-1.0) mg/dL Glucose 114 H 90 (65-110) mg/dL Calcium 9.6 8.7 (8.4-10.2) mg/dL Total Bilirubin 1.0 0.7 (0.2-1.3) mg/dL AST 47 H 35 (14-36) U/L ALT 40 H 26 (6-35) U/L Alkaline Phosphatase 181 H 155 H (38-126) U/L Total Protein 8.5 H 7.0 (6.3-8.2) g/dL Albumin 4.2 3.4 L (3.5-5.1) g/dL All other labs normal. Imaging Additional studies: ITS Impressions Abdomen/Pelvis CT 09/22/24 15:42 IMPRESSION: 1. Small amount of free intraperineal gas and nonloculated free intraperitoneal fluid in the right pelvis was performed on the cecum and terminal ileum, latter demonstrating some associated wall thickening. This most likely related to perforated diverticulitis. Differential includes acute appendicitis although the appendix appears normal and is located in the periphery of the region of stranding and would consider this less likely. Differential would also include terminal ileitis such as in the setting of Crohn's disease. 2. Small sliding-type hiatal hernia.
[2024-09-23 10:16] LABS: Anion Gap 11 mmol/L (4-12); Carbon Dioxide 21 mmol/L (22-30)
--- NOTE | 2024-09-23 13:23 | P.PNIM_ITS ---
Progress Note: A&P Assessment and Plan (1) Diverticulitis of colon with perforation: Code(s): K57.20 - Diverticulitis of large intestine with perforation and abscess without bleeding Status: Acute Assessment and Plan: - CT abd/pelvis: 1. Small amount of free intraperineal gas and nonloculated free intraperitoneal fluid in the right pelvis was performed on the cecum and terminal ileum, latter demonstrating some associated wall thickening. This most likely related to perforated diverticulitis. Differential includes acute appendicitis although the appendix appears normal and is located in the periphery of the region of stranding and would consider this less likely. Differential would also include terminal ileitis such as in the setting of Crohn's disease. 2. Small sliding-type hiatal hernia. -pt to continue on iv zosyn and iv fluids - pain control - surgery advised conservative management - colonoscopy later -pt can start clears - hopefully can advance diet vu amd dc in 1-2 days time back home (2) UTI (urinary tract infection): Qualifiers: Urinary tract infection type: acute cystitis Hematuria presence: without hematuria Qualified Code(s): N30.00 - Acute cystitis without hematuria Code(s): N39.0 - Urinary tract infection, site not specified Status: Suspected Assessment and Plan: - UA: Turbid, 2+ protein, 4+ ketones stoma 2+ bilirubin, 2+ leuks, 6-10 RBC, 51-100 WBC, many epithelial cells, 4+ bacteria. Contaminant versus infection. - UC pending - pt on iv zosyn currently Subjective Date/time seen: 09/23/24 13:23 Interval history: The patient presents here from home for further evaluation of right lower quadrant abdominal pain. ct scan shows small amount of free intraperineal gas and non loculated free intraperitoneal fluid in the right pelvis was performed on the cecum and terminal ileum, latter demonstrating some associated wall thickening. This most likely related to perforated diverticulitis and a small sliding-type hiatal hernia. pt admitted for acute diverticulitis pt seen by surgery continue present care and follow up with colonoscopy later Review of Systems Review of Systems: ongoing lower abdominal pains and some diarrhea All systems reviewed & are unremarkable except as noted in HPI and below Exam Narrative: mild tenderness in the RLQ Const: General: comfortable and no acute distress Other: , female, nontoxic appearance HENMT: Face/Nose/Sinus: Normal nares present Mouth: Yes moist mucous membranes Eyes: General: appearance normal, both eyes and all related structures Sclera: sclerae normal Pupils: Equal, round and reactive pupils present EOM: EOMs intact bilaterally Resp: Effort & Inspection: normal respiratory effort Auscultation: clear to auscultation bilaterally Cardio: Rate: regular rate Rhythm: regular rhythm Other: S1-S2 present without murmur, rub, ectopy GI: Other: mild tenderness in the RLQ. Abdomen soft and nondistended. Hypoactive bowel sounds in all quadrants, quiet. Skin: General skin exam: normal color and no rashes or lesions noted Wounds: no wounds Neuro: Cranial nerves: Yes Equal, round and reactive pupils present Speech: normal speech Motor exam (neuro): 5/5 motor strength present throughout Sensory Exam: normal sensation Other: A&O x4 Extrem: General: normal to inspection Psych: Mental Status: mental status grossly normal Affect: normal affect Other: Good insight and judgment, pleasant Objective Data Vital Signs Vital Signs: Vital Signs - 24 hr 09/22/24 13:24 09/22/24 21:00 09/22/24 21:30 Temperature 36.5 C 36.6 C Pulse Rate 130 H 98 Respiratory Rate 20 20 Blood Pressure 147/85 H 154/88 H Pulse Oximetry 99 97 Oxygen Delivery Room Air Room Air 09/23/24 06:00 Temperature 36.1 C L Pulse Rate 74 Respiratory Rate 16 Blood Pressure 121/56 L Pulse Oximetry 100 Oxygen Delivery Intake/Output Intake/Output: Intake & Output 09/20/24 09/21/24 09/22/24 09/23/24 23:59 23:59 23:59 23:59 Intake Total 2049 2262.5 Balance 2049 2262.5 Meds/Results Medications: Active Medications Generic Name Dose Route Start Last Admin Trade Name Freq PRN Reason Stop Dose Admin Acetaminophen 650 mg 09/22/24 17:44 Acetaminophen 325 Mg Tablet PO Q6H PRN Mild Pain (1-3) or Fever Hydrocodone Bitart/Acetaminophen 1 tab 09/22/24 17:44 Hydrocodone/Acetaminophen (*Crx) 5-325 Mg Tablet PO Q6H PRN Pain Rated 4-6 Sodium Chloride 1,000 mls @ 80 mls/hr 09/22/24 17:00 09/23/24 12:55 Normal Saline Iv IV CONT 80 mls/hr .[id number] SUMEET Infusion Piperacillin/Tazobactam/Dextrose 3.375 gm in 50 mls @ 100 mls/hr 09/23/24 00:00 09/23/24 12:47 Zosyn 3.375 Gm/Ns 50 Ml IVPB 100 mls/hr Q6HR SUMEET Administration Morphine Sulfate 4 mg 09/22/24 17:44 Morphine Sulfate (*Crx) 4 Mg/Ml Inj IV PUSH Q4H PRN Pain Rated 7-10 Radiology Results: ITS Impressions Abdomen/Pelvis CT 09/22/24 15:42 IMPRESSION: 1. Small amount of free intraperineal gas and nonloculated free intraperitoneal fluid in the right pelvis was performed on the cecum and terminal ileum, latter demonstrating some associated wall thickening. This most likely related to perforated diverticulitis. Differential includes acute appendicitis although the appendix appears normal and is located in the periphery of the region of stranding and would consider this less likely. Differential would also include terminal ileitis such as in the setting of Crohn's disease. 2. Small sliding-type hiatal hernia. Labs Labs: Laboratory Results - last 24 hr 09/22/24 09/22/24 09/22/24 14:30 15:02 15:04 WBC 17.3 H RBC 4.40 Hgb 12.8 Hct 39.4 MCV 89.5 MCH 29.1 MCHC 32.5 RDW 12.8 Plt Count 438 H MPV 9.8 Immature Gran % (Auto) 0.3 Neut % (Auto) 90.1 H Lymph % (Auto) 4.4 L [place] % (Auto) 4.8 Eos % (Auto) 0.2 Baso % (Auto) 0.2 Lymph # (Auto) 0.77 L [place] # (Auto) 0.8 H Eos # (Auto) 0.0 Baso # (Auto) 0.0 Abs Immat Gran (auto) 0.06 H Absolute Neuts (auto) 15.6 H Absolute Nucleated RBC 0.000 Nucleated RBC % 0.0 Sodium 137 Potassium 3.9 Chloride 100 Carbon Dioxide 21 L Anion Gap 16 H BUN 14 Creatinine 0.95 Estim Creat Clear Calc 59 Estimated GFR 58 L Glucose 114 H Lactic Acid Calcium 9.6 Magnesium Total Bilirubin 1.0 AST 47 H ALT 40 H Alkaline Phosphatase 181 H Total Protein 8.5 H Albumin 4.2 Lipase 30 Urine Color Dark yellow Urine Appearance Turbid H Urine pH 5.0 Ur Specific [place] 1.027 Urine Protein 2+ H Urine Glucose (UA) Negative Urine Ketones 4+ H Ur Blood (Man) Trace Urine Nitrate Negative Urine Bilirubin 2+ H Urine Urobilinogen 1.0 Add Ur Microanalysis Reviewed Leukocyte Esterase Rfl 2+ H Urine RBC 6-10 H Urine WBC 51-100 H Ur Squamous Epith Cells Many H Urine Bacteria 4+ H Urine Casts >20 09/22/24 09/23/24 16:07 06:11 WBC 10.8 H RBC 3.51 L Hgb 10.1 L Hct 32.6 L MCV 92.9 MCH 28.8 MCHC 31.0 L RDW 12.9 Plt Count 300 MPV 10.0 Immature Gran % (Auto) 0.6 H Neut % (Auto) 78.7 H Lymph % (Auto) 11.7 L [place] % (Auto) 7.7 Eos % (Auto) 1.1 Baso % (Auto) 0.2 Lymph # (Auto) 1.27 [place] # (Auto) 0.8 H Eos # (Auto) 0.1 Baso # (Auto) 0.0 Abs Immat Gran (auto) 0.07 H Absolute Neuts (auto) 8.5 H Absolute Nucleated RBC 0.000 Nucleated RBC % 0.0 Sodium 137 Potassium 3.8 Chloride 105 Carbon Dioxide 21 L Anion Gap 11 BUN 12 Creatinine 0.86 Estim Creat Clear Calc 62 Estimated GFR > 60 Glucose 90 Lactic Acid 0.9 Calcium 8.7 Magnesium 2.2 Total Bilirubin 0.7 AST 35 ALT 26 Alkaline Phosphatase 155 H Total Protein 7.0 Albumin 3.4 L Lipase Urine Color Urine Appearance Urine pH Ur Specific [place] Urine Protein Urine Glucose (UA) Urine Ketones Ur Blood (Man) Urine Nitrate Urine Bilirubin Urine Urobilinogen Add Ur Microanalysis Leukocyte Esterase Rfl Urine RBC Urine WBC Ur Squamous Epith Cells Urine Bacteria Urine Casts
[2024-09-23 13:57] VITALS: BP 148/93; PULSE 86; RESP 16; TEMP 36.4; O2SAT 100
[2024-09-23 19:52] VITALS: BP 152/77; PULSE 78; RESP 16; TEMP 36.6; O2SAT 99
[2024-09-24] MEDS: PIPERACILLN/TAZ 3.375GM/NS50ML 3.375 GM/50 ML BAG IVPB ×4 (00:04→18:34)
--- NOTE | 2024-09-24 01:38 | PC.NURSE ---
On 09/24/24, the Graduate Nurse, Magali, provided care and completed [employer] documentation on this patient with this nurse at her side, available for questions/assistance. I have reviewed the Magali's documentation and agree with the findings.
[2024-09-24] MEDS: SODIUM CHLORIDE 0.9% IV 1,000 ML 80 ML IV CONT ×2 (02:34→22:35)
[2024-09-24 05:38] VITALS: BP 169/87; PULSE 89; RESP 20; TEMP 36.7; O2SAT 97
[2024-09-24 07:29] LABS: Hematocrit 32.6 % (37.0-47.0); Hemoglobin 10.1 g/dL (12.0-15.0); Mean Corpuscular Hemoglobin 28.7 pg (26-34); Mean Corpuscular Volume 92.6 fl (80-100); Platelet Count Result 345 k/mm3 (150-375); Red Blood Count 3.52 M/mm3 (4.2-5.4); Red Cell Distribution Width 13.2 % (11.5-14.5); White Blood Count 9.2 K/mm3 (4.5-10.0)
[2024-09-24 08:01] LABS: Anion Gap 11 mmol/L (4-12); Blood Urea Nitrogen 10 mg/dL (7-17); Calcium 9.1 mg/dL (8.4-10.2); Carbon Dioxide 21 mmol/L (22-30); Chloride 108 mmol/L (98-107); Estimated CRCL calculation 54 ml/min; Estimated Glomerular Filt Rate 56; Glucose 99 mg/dL (65-110); Potassium 3.8 mmol/L (3.4-5.0); Sodium 140 mmol/L (137-145)
--- NOTE | 2024-09-24 10:01 | P.PNGS_ITS ---
Progress Note: A&P Assessment and Plan (1) Diverticulitis of colon with perforation: Code(s): K57.20 - Diverticulitis of large intestine with perforation and abscess without bleeding Status: Acute Assessment and Plan: * Patient feels pain is decreased today. She describes it as a ?soreness? rather than pain. No signs of acute surgical abdomen. No urgent surgical intervention necessary at this time. Continue IV broad-spectrum antibiotics. Consider advancing diet to soft liquids today. Patient will eventually need a colonoscopy in about 4-6 weeks after resolution of this acute process since she has never had a colonoscopy in the past. (2) UTI (urinary tract infection): Qualifiers: Urinary tract infection type: acute cystitis Hematuria presence: without hematuria Qualified Code(s): N30.00 - Acute cystitis without hematuria Code(s): N39.0 - Urinary tract infection, site not specified Status: Suspected Assessment and Plan: * UA abnormal. No urinary symptoms. Management per Hospitalist. Plan I have discussed the patient's case and plan of care with Dr. Shi. Subjective Subjective Date/Time Seen: 09/24/24 10:01 Patient reports: no new complaints, pain is less and bowel movement Interval history: Patient is feeling better today. Tolerating clear liquids without nausea or vomiting. She notes having bowel movement this morning. No melena or hematochezia. No problems with urination. WBC has normalized at 9.2. Exam GI: Inspection: non-distended and no scars GI Palp: Yes Soft to palpation, Yes Tenderness to palpation present (GI) and No Guarding due to palpation present (GI) Auscultation: normal bowel sounds Other: Abdomen nondistended and soft with mild diffuse tenderness across the epigastric region. No rebound or diffuse peritoneal signs. : General: Yes bladder normal to palpation Objective Data Vital Signs Vital Signs: Vital Signs - 24 hr 09/23/24 13:57 09/23/24 19:52 09/23/24 21:00 Temperature 97.5 F L 97.8 F Pulse Rate 86 78 Respiratory Rate 16 16 Blood Pressure 148/93 H 152/77 H Pulse Oximetry 100 99 Oxygen Delivery Room Air 09/24/24 05:38 Temperature 98.1 F Pulse Rate 89 Respiratory Rate 20 Blood Pressure 169/87 H Pulse Oximetry 97 Oxygen Delivery Intake/Output Intake/Output: Intake & Output 09/21/24 09/22/24 09/23/24 09/24/24 23:59 23:59 23:59 23:59 Intake Total 2049 2362.5 1487.5 Balance 2049 2362.5 1487.5 Meds/Results Medications: Active Medications Generic Name Dose Route Start Last Admin Trade Name Freq PRN Reason Stop Dose Admin Acetaminophen 650 mg 09/22/24 17:44 Acetaminophen 325 Mg Tablet PO Q6H PRN Mild Pain (1-3) or Fever Hydrocodone Bitart/Acetaminophen 1 tab 09/22/24 17:44 Hydrocodone/Acetaminophen (*Crx) 5-325 Mg Tablet PO Q6H PRN Pain Rated 4-6 Sodium Chloride 1,000 mls @ 80 mls/hr 09/22/24 17:00 09/24/24 02:34 Normal Saline Iv IV CONT 80 mls/hr .[id number] SUMEET Administration Piperacillin/Tazobactam/Dextrose 3.375 gm in 50 mls @ 100 mls/hr 09/23/24 00:00 09/24/24 06:29 Zosyn 3.375 Gm/Ns 50 Ml IVPB Infused Q6HR SUMEET Infusion Morphine Sulfate 4 mg 09/22/24 17:44 Morphine Sulfate (*Crx) 4 Mg/Ml Inj IV PUSH Q4H PRN Pain Rated 7-10 Radiology Results: ITS Impressions Abdomen/Pelvis CT 09/22/24 15:42 IMPRESSION: 1. Small amount of free intraperineal gas and nonloculated free intraperitoneal fluid in the right pelvis was performed on the cecum and terminal ileum, latter demonstrating some associated wall thickening. This most likely related to perforated diverticulitis. Differential includes acute appendicitis although the appendix appears normal and is located in the periphery of the region of stranding and would consider this less likely. Differential would also include terminal ileitis such as in the setting of Crohn's disease. 2. Small sliding-type hiatal hernia. Labs Labs: Laboratory Results - last 24 hr 09/23/24 09/24/24 06:11 06:51 WBC 9.2 RBC 3.52 L Hgb 10.1 L Hct 32.6 L MCV 92.6 MCH 28.7 MCHC 31.0 L RDW 13.2 Plt Count 345 MPV 10.0 Sodium 140 Potassium 3.8 Chloride 108 H Carbon Dioxide 21 L 21 L Anion Gap 11 11 BUN 10 Creatinine 0.99 Estim Creat Clear Calc 54 Estimated GFR 56 L Glucose 99 Calcium 9.1
--- NOTE | 2024-09-24 13:18 | P.PNIM_ITS ---
Progress Note: A&P Assessment and Plan (1) Diverticulitis of colon with perforation: Code(s): K57.20 - Diverticulitis of large intestine with perforation and abscess without bleeding Status: Acute Assessment and Plan: - CT abd/pelvis: 1. Small amount of free intraperineal gas and nonloculated free intraperitoneal fluid in the right pelvis was performed on the cecum and terminal ileum, latter demonstrating some associated wall thickening. This most likely related to perforated diverticulitis. Differential includes acute appendicitis although the appendix appears normal and is located in the periphery of the region of stranding and would consider this less likely. Differential would also include terminal ileitis such as in the setting of Crohn's disease. 2. Small sliding-type hiatal hernia. -pt to continue on iv zosyn and iv fluids - pain control - surgery advised conservative management - colonoscopy later -pt can start clears advanced to mechanical soft diet per general surgeon Continue IV Zosyn IV today (2) UTI (urinary tract infection): Qualifiers: Urinary tract infection type: acute cystitis Hematuria presence: without hematuria Qualified Code(s): N30.00 - Acute cystitis without hematuria Code(s): N39.0 - Urinary tract infection, site not specified Status: Suspected Assessment and Plan: - UA: Turbid, 2+ protein, 4+ ketones stoma 2+ bilirubin, 2+ leuks, 6-10 RBC, 51-100 WBC, many epithelial cells, 4+ bacteria. Contaminant versus infection. - UC pending - pt on iv zosyn currently Subjective Date/time seen: 09/24/24 13:18 Interval history: Patient still has right lower quadrant abdominal pain. Pain is tolerable, patient afebrile, blood pressure stable. Patient tolerated full liquid diet well Exam Narrative: GENERAL: Pleasant, in no acute distress. Well-nourished. - EYES: EOMI. Anicteric. - HENT: Moist mucous membranes. - LUNGS: Clear to auscultation bilateral ly, no wheezing, rhonchi, or rales. - CARDIOVASCULAR: Regular rate and rhyth m. No murmur. No JVD. - ABDOMEN: Soft, lower abdominal tender and non-distended. No palpable masses. - EXTREMITIES: No edema. Peripheral puls es 2+. Non-tender. - NEUROLOGIC: No focal neurological defi cits. CN II-XII grossly intact. - PSYCHIATRIC: Awake, Alert and oriented x 3. Appropriate mood and affect. - SKIN: No rashes or lesions. Warm. - LYMPH: No cervical lymphadenopathy. Objective Data Vital Signs Vital Signs: Vital Signs - 24 hr 09/23/24 13:57 09/23/24 19:52 09/23/24 21:00 Temperature 97.5 F L 97.8 F Pulse Rate 86 78 Respiratory Rate 16 16 Blood Pressure 148/93 H 152/77 H Pulse Oximetry 100 99 Oxygen Delivery Room Air 09/24/24 05:38 Temperature 98.1 F Pulse Rate 89 Respiratory Rate 20 Blood Pressure 169/87 H Pulse Oximetry 97 Oxygen Delivery Intake/Output Intake/Output: Intake & Output 09/21/24 09/22/24 09/23/24 09/24/24 23:59 23:59 23:59 23:59 Intake Total 2049 2362.5 1727.5 Balance 2049 2362.5 1727.5 Meds/Results Medications: Active Medications Generic Name Dose Route Start Last Admin Trade Name Freq PRN Reason Stop Dose Admin Acetaminophen 650 mg 09/22/24 17:44 Acetaminophen 325 Mg Tablet PO Q6H PRN Mild Pain (1-3) or Fever Hydrocodone Bitart/Acetaminophen 1 tab 09/22/24 17:44 Hydrocodone/Acetaminophen (*Crx) 5-325 Mg Tablet PO Q6H PRN Pain Rated 4-6 Sodium Chloride 1,000 mls @ 80 mls/hr 09/22/24 17:00 09/24/24 02:34 Normal Saline Iv IV CONT 80 mls/hr .[id number] SUMEET Administration Piperacillin/Tazobactam/Dextrose 3.375 gm in 50 mls @ 100 mls/hr 09/23/24 00:00 09/24/24 11:59 Zosyn 3.375 Gm/Ns 50 Ml IVPB 100 mls/hr Q6HR SUMEET Administration Morphine Sulfate 4 mg 09/22/24 17:44 Morphine Sulfate (*Crx) 4 Mg/Ml Inj IV PUSH Q4H PRN Pain Rated 7-10 Radiology Results: ITS Impressions Abdomen/Pelvis CT 09/22/24 15:42 IMPRESSION: 1. Small amount of free intraperineal gas and nonloculated free intraperitoneal fluid in the right pelvis was performed on the cecum and terminal ileum, latter demonstrating some associated wall thickening. This most likely related to perforated diverticulitis. Differential includes acute appendicitis although the appendix appears normal and is located in the periphery of the region of stranding and would consider this less likely. Differential would also include terminal ileitis such as in the setting of Crohn's disease. 2. Small sliding-type hiatal hernia. Labs Labs: Laboratory Results - last 24 hr 09/24/24 06:51 WBC 9.2 RBC 3.52 L Hgb 10.1 L Hct 32.6 L MCV 92.6 MCH 28.7 MCHC 31.0 L RDW 13.2 Plt Count 345 MPV 10.0 Sodium 140 Potassium 3.8 Chloride 108 H Carbon Dioxide 21 L Anion Gap 11 BUN 10 Creatinine 0.99 Estim Creat Clear Calc 54 Estimated GFR 56 L Glucose 99 Calcium 9.1
[2024-09-24 14:00] VITALS: BP 135/81; PULSE 80; RESP 18; TEMP 36.4; O2SAT 99
[2024-09-24 20:30] VITALS: BP 152/80; PULSE 88; RESP 18; TEMP 36.2; O2SAT 99
[2024-09-25] MEDS: PIPERACILLN/TAZ 3.375GM/NS50ML 3.375 GM/50 ML BAG IVPB ×5 (00:14→23:37)
[2024-09-25 05:00] VITALS: BP 152/85; PULSE 70; RESP 18; TEMP 36.6; O2SAT 97
--- NOTE | 2024-09-25 08:12 | P.PNIM_ITS ---
Progress Note: A&P Assessment and Plan (1) Diverticulitis of colon with perforation: Code(s): K57.20 - Diverticulitis of large intestine with perforation and abscess without bleeding Status: Acute Assessment and Plan: CT abd/pelvis: 1. Small amount of free intraperineal gas and nonloculated free intraperitoneal fluid in the right pelvis was performed on the cecum and terminal ileum, latter demonstrating some associated wall thickening. This most likely related to perforated diverticulitis. Differential includes acute appendicitis although the appendix appears normal and is located in the periphery of the region of stranding and would consider this less likely. Differential would also include terminal ileitis such as in the setting of Crohn's disease. 2. Small sliding-type hiatal hernia. -pt to continue on iv zosyn and iv fluids - pain control: Has tylenol, Vicodin, and morphine ordered. - surgery following, appreciate recommendations. Conservative management - Needs an outpatient colonoscopy --Tolerating diet, advanced to low fiber diet per general surgeon Continue IV Zosyn IV --AM labs: CBC, ESR, CBC, CMP Possibly home in AM if tolerating diet (2) Asymptomatic bacteriuria: Code(s): R82.71 - Bacteriuria Status: Acute Assessment and Plan: Patient denies urinary symptoms. UA: Turbid, 2+ protein, 4+ ketones stoma 2+ bilirubin, 2+ leuks, 6-10 RBC, 51- 100 WBC, many epithelial cells, 4+ bacteria. Urine consistent with contamination and patient reports urine was not a clean catch. - UC pending but is unlikely a true infection - pt on iv zosyn for acute diverticulitis Time Spent With Patient Time: 47 minutes Subjective Date/time seen: 09/25/24 08:12 Interval history: Surgery following for abdominal abscess, perforated diverticulitis. Tolerating a low fiber diet VSS Labs ok. BP above goal. No home meds. Not taking anything for pain. Review of Systems Review of Systems: ongoing lower abdominal pains and some diarrhea All systems reviewed & are unremarkable except as noted in HPI and below Exam Narrative: GENERAL: Pleasant, in no acute distress. Well-nourished. - EYES: EOMI. Anicteric. - HENT: Moist mucous membranes. - LUNGS: Clear to auscultation bilateral ly, no wheezing, rhonchi, or rales. - CARDIOVASCULAR: Regular rate and rhyth m. No murmur. No JVD. - ABDOMEN: Soft, lower abdominal tender and non-distended. No palpable masses. - EXTREMITIES: No edema. Peripheral puls es 2+. Non-tender. - NEUROLOGIC: No focal neurological defi cits. CN II-XII grossly intact. - PSYCHIATRIC: Awake, Alert and oriented x 3. Appropriate mood and affect. - SKIN: No rashes or lesions. Warm. - LYMPH: No cervical lymphadenopathy. Objective Data Vital Signs Vital Signs: Vital Signs - 24 hr 09/24/24 14:00 09/24/24 20:30 09/25/24 05:00 Temperature 97.6 F 97.1 F L 97.9 F Pulse Rate 80 88 70 Respiratory Rate 18 18 18 Blood Pressure 135/81 152/80 H 152/85 H Pulse Oximetry 99 99 97 Intake/Output Intake/Output: Intake & Output 09/22/24 09/23/24 09/24/24 09/25/24 23:59 23:59 23:59 23:59 Intake Total 2049 2362.5 4017.5 200 Balance 2049 2362.5 4017.5 200 Meds/Results Medications: Active Medications Generic Name Dose Route Start Last Admin Trade Name Freq PRN Reason Stop Dose Admin Acetaminophen 650 mg 09/22/24 17:44 Acetaminophen 325 Mg Tablet PO Q6H PRN Mild Pain (1-3) or Fever Hydrocodone Bitart/Acetaminophen 1 tab 09/22/24 17:44 Hydrocodone/Acetaminophen (*Crx) 5-325 Mg Tablet PO Q6H PRN Pain Rated 4-6 Sodium Chloride 1,000 mls @ 80 mls/hr 09/22/24 17:00 09/24/24 22:35 Normal Saline Iv IV CONT 80 mls/hr .[id number] SUMEET Administration Piperacillin/Tazobactam/Dextrose 3.375 gm in 50 mls @ 100 mls/hr 09/23/24 00:00 09/25/24 05:25 Zosyn 3.375 Gm/Ns 50 Ml IVPB 100 mls/hr Q6HR SUMEET Administration Morphine Sulfate 4 mg 09/22/24 17:44 Morphine Sulfate (*Crx) 4 Mg/Ml Inj IV PUSH Q4H PRN Pain Rated 7-10 Radiology Results: ITS Impressions Abdomen/Pelvis CT 09/22/24 15:42 IMPRESSION: 1. Small amount of free intraperineal gas and nonloculated free intraperitoneal fluid in the right pelvis was performed on the cecum and terminal ileum, latter demonstrating some associated wall thickening. This most likely related to perforated diverticulitis. Differential includes acute appendicitis although the appendix appears normal and is located in the periphery of the region of stranding and would consider this less likely. Differential would also include terminal ileitis such as in the setting of Crohn's disease. 2. Small sliding-type hiatal hernia. Quality VTE Prophylaxis VTE prophylaxis: mechanical ordered and pharmacologic ordered Hospitalist MIPS Advance Care Plan I have confirmed that the patient's Advanced Care Plan is present, code status is documented, or surrogate decision maker is listed in patient medical record.: Yes Medication Reconciliation I have utilized all available resources to obtain, update and review the patients current medications (includes all prescriptions, OTC, herbals, cannabis, and nutritional supplements).: Yes
--- NOTE | 2024-09-25 13:51 | P.PNGS_ITS ---
Progress Note: A&P Assessment and Plan (1) Diverticulitis of colon with perforation: Code(s): K57.20 - Diverticulitis of large intestine with perforation and abscess without bleeding Status: Acute Assessment and Plan: * Continue IV Zosyn * Advance to low fiber diet * Possibly home in AM if tolerating diet (2) UTI (urinary tract infection): Qualifiers: Urinary tract infection type: acute cystitis Hematuria presence: without hematuria Qualified Code(s): N30.00 - Acute cystitis without hematuria Code(s): N39.0 - Urinary tract infection, site not specified Status: Suspected Assessment and Plan: * UA abnormal. No urinary symptoms. Management per Hospitalist. Subjective Subjective Date/Time Seen: 09/25/24 13:51 Interval history: Tolerating diet, having some diarrhea. Pain has significantly improved. Exam GI: Inspection: non-distended GI Palp: Yes Soft to palpation, No Tenderness to palpation present (GI), No Guarding due to palpation present (GI) and No Rebound tenderness present Percussion: Yes normal to percussion Auscultation: normal bowel sounds Objective Data Vital Signs Vital Signs: Vital Signs - 24 hr 09/24/24 14:00 09/24/24 20:30 09/25/24 05:00 Temperature 97.6 F 97.1 F L 97.9 F Pulse Rate 80 88 70 Respiratory Rate 18 18 18 Blood Pressure 135/81 152/80 H 152/85 H Pulse Oximetry 99 99 97 Intake/Output Intake/Output: Intake & Output 09/22/24 09/23/24 09/24/24 09/25/24 23:59 23:59 23:59 23:59 Intake Total 2049 2362.5 4017.5 300 Balance 2049 2362.5 4017.5 300 Meds/Results Medications: Active Medications Generic Name Dose Route Start Last Admin Trade Name Freq PRN Reason Stop Dose Admin Acetaminophen 650 mg 09/22/24 17:44 Acetaminophen 325 Mg Tablet PO Q6H PRN Mild Pain (1-3) or Fever Hydrocodone Bitart/Acetaminophen 1 tab 09/22/24 17:44 Hydrocodone/Acetaminophen (*Crx) 5-325 Mg Tablet PO Q6H PRN Pain Rated 4-6 Piperacillin/Tazobactam/Dextrose 3.375 gm in 50 mls @ 100 mls/hr 09/23/24 00:00 09/25/24 13:19 Zosyn 3.375 Gm/Ns 50 Ml IVPB Infused Q6HR SUMEET Infusion Morphine Sulfate 4 mg 09/22/24 17:44 Morphine Sulfate (*Crx) 4 Mg/Ml Inj IV PUSH Q4H PRN Pain Rated 7-10 Radiology Results: ITS Impressions Abdomen/Pelvis CT 09/22/24 15:42 IMPRESSION: 1. Small amount of free intraperineal gas and nonloculated free intraperitoneal fluid in the right pelvis was performed on the cecum and terminal ileum, latter demonstrating some associated wall thickening. This most likely related to perforated diverticulitis. Differential includes acute appendicitis although the appendix appears normal and is located in the periphery of the region of stranding and would consider this less likely. Differential would also include terminal ileitis such as in the setting of Crohn's disease. 2. Small sliding-type hiatal hernia.
[2024-09-25 14:00] VITALS: BP 150/87; PULSE 88; RESP 18; TEMP 36.9; O2SAT 98
[2024-09-25 18:14] LABS: Basophils Percent Auto 0.3 % (0.2-1.2); Eosinophils Absolute Auto 0.1 K/mm3 (0-0.3); Eosinophils Percent Auto 1.1 % (0-4.4); Hematocrit 30.7 % (37.0-47.0); Hemoglobin 9.7 g/dL (12.0-15.0); Immature Granulocyte Absolute 0.04 K/mm3 (0.00-0.031); Immature Granulocyte Percent A 0.4 % (0-0.5); Lymphocytes Absolute Auto 1.06 K/mm3 (0.9-3.2); Lymphocytes Percent Auto 10.2 % (18.3-44.2); Mean Corpuscular HGB Conc 31.6 g/dl (32-36); Mean Corpuscular Hemoglobin 28.9 pg (26-34); Mean Corpuscular Volume 91.4 fl (80-100); Mean Platelet Volume 9.5 fl (7.4-10.4); Monocytes Absolute Auto 0.7 K/mm3 (0.1-0.6); Monocytes Percent Auto 6.3 % (2.6-8.5); Neutrophils Absolute Auto 8.5 K/mm3 (1.3-6.7); Neutrophils Percent Auto 81.7 % (45.5-73.1); Platelet Count Result 305 k/mm3 (150-375); Red Blood Count 3.36 M/mm3 (4.2-5.4); Red Cell Distribution Width 13.1 % (11.5-14.5); White Blood Count 10.4 K/mm3 (4.5-10.0)
[2024-09-25 18:26] LABS: INR 1.2; Prothrombin Time 15.2 Seconds (11.1-14.7)
[2024-09-25 18:27] LABS: Partial Thromboplastin Time 27.6 Seconds (22.3-36.8)
[2024-09-25 20:40] VITALS: BP 169/86; PULSE 75; RESP 18; TEMP 36.8; O2SAT 100
[2024-09-25] MEDS: HEPARIN SODIUM 5,000 UNITS/ML VIAL 5000 UNITS SUB-Q (21:33)
[2024-09-26 05:10] VITALS: BP 168/94; PULSE 64; RESP 18; TEMP 36.3; O2SAT 98
[2024-09-26] MEDS: HEPARIN SODIUM 5,000 UNITS/ML VIAL 5000 UNITS SUB-Q (05:45)
[2024-09-26] MEDS: PIPERACILLN/TAZ 3.375GM/NS50ML 3.375 GM/50 ML BAG IVPB ×2 (05:46→14:30)
[2024-09-26 07:00] LABS: Basophils Percent Auto 0.3 % (0.2-1.2); Eosinophils Absolute Auto 0.1 K/mm3 (0-0.3); Eosinophils Percent Auto 1.3 % (0-4.4); Hematocrit 30.6 % (37.0-47.0); Hemoglobin 9.7 g/dL (12.0-15.0); Immature Granulocyte Absolute 0.06 K/mm3 (0.00-0.031); Immature Granulocyte Percent A 0.6 % (0-0.5); Lymphocytes Absolute Auto 1.24 K/mm3 (0.9-3.2); Lymphocytes Percent Auto 11.7 % (18.3-44.2); Mean Corpuscular HGB Conc 31.7 g/dl (32-36); Mean Corpuscular Hemoglobin 28.9 pg (26-34); Mean Corpuscular Volume 91.1 fl (80-100); Mean Platelet Volume 9.8 fl (7.4-10.4); Monocytes Absolute Auto 0.7 K/mm3 (0.1-0.6); Monocytes Percent Auto 6.7 % (2.6-8.5); Neutrophils Absolute Auto 8.4 K/mm3 (1.3-6.7); Neutrophils Percent Auto 79.4 % (45.5-73.1); Platelet Count Result 351 k/mm3 (150-375); Red Blood Count 3.36 M/mm3 (4.2-5.4); White Blood Count 10.6 K/mm3 (4.5-10.0)
[2024-09-26 07:19] LABS: Alanine Aminotransferase 40 U/L (6-35); Albumin Level 3.3 g/dL (3.5-5.1); Alkaline Phosphatase 184 U/L (38-126); Anion Gap 10 mmol/L (4-12); Aspartate Amino Transferase 46 U/L (14-36); Bilirubin,Total 0.5 mg/dL (0.2-1.3); Blood Urea Nitrogen 5 mg/dL (7-17); Carbon Dioxide 21 mmol/L (22-30); Chloride 107 mmol/L (98-107); Estimated CRCL calculation 62 ml/min; Estimated Glomerular Filt Rate > 60; Glucose 97 mg/dL (65-110); Potassium 3.4 mmol/L (3.4-5.0); Sodium 138 mmol/L (137-145); Total Protein 6.9 g/dL (6.3-8.2)
[2024-09-26 09:02] LABS: Erythrocyte Sedimentation Rate > 140 mm/hr (0-20)
--- NOTE | 2024-09-26 09:12 | P.PNIM_ITS ---
Progress Note: A&P Assessment and Plan (1) Diverticulitis of colon with perforation: Code(s): K57.20 - Diverticulitis of large intestine with perforation and abscess without bleeding Status: Acute Assessment and Plan: CT abd/pelvis: 1. Small amount of free intraperineal gas and nonloculated free intraperitoneal fluid in the right pelvis was performed on the cecum and terminal ileum, latter demonstrating some associated wall thickening. This most likely related to perforated diverticulitis. Differential includes acute appendicitis although the appendix appears normal and is located in the periphery of the region of stranding and would consider this less likely. Differential would also include terminal ileitis such as in the setting of Crohn's disease. 2. Small sliding-type hiatal hernia. -pt to continue on iv zosyn and iv fluids - pain control: Has tylenol, Vicodin, and morphine ordered. - surgery following, appreciate recommendations. Conservative management - Needs an outpatient colonoscopy --Tolerating diet, advanced to low fiber diet per general surgeon Continue IV Zosyn IV --AM labs: CBC, ESR, CBC, CMP (2) Asymptomatic bacteriuria: Code(s): R82.71 - Bacteriuria Status: Acute Assessment and Plan: Patient denies urinary symptoms. UA: Turbid, 2+ protein, 4+ ketones stoma 2+ bilirubin, 2+ leuks, 6-10 RBC, 51- 100 WBC, many epithelial cells, 4+ bacteria. Urine consistent with contamination and patient reports urine was not a clean catch. - UC pending but is unlikely a true infection - pt on iv zosyn for acute diverticulitis Subjective Date/time seen: 09/26/24 09:12 Interval history: Surgery following for abdominal abscess, perforated diverticulitis. Discharge? Tolerating a low fiber diet? VSS Labs ok. BP above goal. No home meds. Not taking anything for pain. Review of Systems Review of Systems: ongoing lower abdominal pains and some diarrhea All systems reviewed & are unremarkable except as noted in HPI and below Exam Narrative: GENERAL: Pleasant, in no acute distress. Well-nourished. - EYES: EOMI. Anicteric. - HENT: Moist mucous membranes. - LUNGS: Clear to auscultation bilateral ly, no wheezing, rhonchi, or rales. - CARDIOVASCULAR: Regular rate and rhyth m. No murmur. No JVD. - ABDOMEN: Soft, lower abdominal tender and non-distended. No palpable masses. - EXTREMITIES: No edema. Peripheral puls es 2+. Non-tender. - NEUROLOGIC: No focal neurological defi cits. CN II-XII grossly intact. - PSYCHIATRIC: Awake, Alert and oriented x 3. Appropriate mood and affect. - SKIN: No rashes or lesions. Warm. - LYMPH: No cervical lymphadenopathy. Objective Data Vital Signs Vital Signs: Vital Signs - 24 hr 09/25/24 14:00 09/25/24 20:40 09/26/24 05:10 Temperature 98.4 F 98.2 F 97.4 F L Pulse Rate 88 75 64 Respiratory Rate 18 18 18 Blood Pressure 150/87 H 169/86 H 168/94 H Pulse Oximetry 98 100 98 Intake/Output Intake/Output: Intake & Output 09/23/24 09/24/24 09/25/24 09/26/24 23:59 23:59 23:59 23:59 Intake Total 2362.5 4017.5 2620 450 Balance 2362.5 4017.5 2620 450 Meds/Results Medications: Active Medications Generic Name Dose Route Start Last Admin Trade Name Freq PRN Reason Stop Dose Admin Acetaminophen 650 mg 09/22/24 17:44 Acetaminophen 325 Mg Tablet PO Q6H PRN Mild Pain (1-3) or Fever Hydrocodone Bitart/Acetaminophen 1 tab 09/22/24 17:44 Hydrocodone/Acetaminophen (*Crx) 5-325 Mg Tablet PO Q6H PRN Pain Rated 4-6 Heparin Sodium (Porcine) 5,000 units 09/25/24 22:00 09/26/24 05:45 Heparin Sodium 5,000 Units/Ml Vial SUB-Q 5,000 units Q8HR SUMEET Administration Piperacillin/Tazobactam/Dextrose 3.375 gm in 50 mls @ 100 mls/hr 09/23/24 00:00 09/26/24 07:00 Zosyn 3.375 Gm/Ns 50 Ml IVPB Infused Q6HR SUMEET Infusion Morphine Sulfate 4 mg 09/22/24 17:44 Morphine Sulfate (*Crx) 4 Mg/Ml Inj IV PUSH Q4H PRN Pain Rated 7-10 Radiology Results: ITS Impressions Abdomen/Pelvis CT 09/22/24 15:42 IMPRESSION: 1. Small amount of free intraperineal gas and nonloculated free intraperitoneal fluid in the right pelvis was performed on the cecum and terminal ileum, latter demonstrating some associated wall thickening. This most likely related to perforated diverticulitis. Differential includes acute appendicitis although the appendix appears normal and is located in the periphery of the region of stranding and would consider this less likely. Differential would also include terminal ileitis such as in the setting of Crohn's disease. 2. Small sliding-type hiatal hernia. Labs Labs: Laboratory Results - last 24 hr 09/25/24 09/26/24 18:07 06:18 WBC 10.4 H 10.6 H RBC 3.36 L 3.36 L Hgb 9.7 L 9.7 L Hct 30.7 L 30.6 L MCV 91.4 91.1 MCH 28.9 28.9 MCHC 31.6 L 31.7 L RDW 13.1 13.0 Plt Count 305 351 MPV 9.5 9.8 Immature Gran % (Auto) 0.4 0.6 H Neut % (Auto) 81.7 H 79.4 H Lymph % (Auto) 10.2 L 11.7 L [place] % (Auto) 6.3 6.7 Eos % (Auto) 1.1 1.3 Baso % (Auto) 0.3 0.3 Lymph # (Auto) 1.06 1.24 [place] # (Auto) 0.7 H 0.7 H Eos # (Auto) 0.1 0.1 Baso # (Auto) 0.0 0.0 Abs Immat Gran (auto) 0.04 H 0.06 H Absolute Neuts (auto) 8.5 H 8.4 H Absolute Nucleated RBC 0.000 0.000 Nucleated RBC % 0.0 0.0 ESR > 140 H PT 15.2 H INR 1.2 APTT 27.6 Sodium 138 Potassium 3.4 Chloride 107 Carbon Dioxide 21 L Anion Gap 10 BUN 5 L D Creatinine 0.86 Estim Creat Clear Calc 62 Estimated GFR > 60 Glucose 97 Calcium 9.0 Total Bilirubin 0.5 AST 46 H ALT 40 H Alkaline Phosphatase 184 H C-Reactive Protein 16.0 H Total Protein 6.9 Albumin 3.3 L Quality VTE Prophylaxis VTE prophylaxis: mechanical ordered and pharmacologic ordered Hospitalist MIPS Advance Care Plan I have confirmed that the patient's Advanced Care Plan is present, code status is documented, or surrogate decision maker is listed in patient medical record.: Yes Medication Reconciliation I have utilized all available resources to obtain, update and review the patients current medications (includes all prescriptions, OTC, herbals, cannabis, and nutritional supplements).: Yes
--- NOTE | 2024-09-26 10:03 | P.PNGS_ITS ---
Progress Note: A&P Assessment and Plan (1) Diverticulitis of colon with perforation: Code(s): K57.20 - Diverticulitis of large intestine with perforation and abscess without bleeding Status: Acute Assessment and Plan: * OK to discharge from surgical standpoint * Discussed low fiber diet for 2 weeks, then advance to high fiber * Augmentin and Flagyl Rx sent to pharmacy for 10 days * F/u with Dr. Shi in 2 weeks. (2) UTI (urinary tract infection): Qualifiers: Urinary tract infection type: acute cystitis Hematuria presence: without hematuria Qualified Code(s): N30.00 - Acute cystitis without hematuria Code(s): N39.0 - Urinary tract infection, site not specified Status: Suspected Assessment and Plan: * UA abnormal. No urinary symptoms. Management per Hospitalist. Subjective Subjective Date/Time Seen: 09/26/24 10:03 Interval history: Minimal pain. Tolerating soft diet. No fevers. Bowels moving, mostly diarrhea so far. Exam GI: Inspection: non-distended GI Palp: Yes Soft to palpation, No Tenderness to palpation present (GI), No Guarding due to palpation present (GI) and No Rebound tenderness present Percussion: Yes normal to percussion Auscultation: normal bowel sounds Objective Data Vital Signs Vital Signs: Vital Signs - 24 hr 09/25/24 14:00 09/25/24 20:40 09/26/24 05:10 Temperature 98.4 F 98.2 F 97.4 F L Pulse Rate 88 75 64 Respiratory Rate 18 18 18 Blood Pressure 150/87 H 169/86 H 168/94 H Pulse Oximetry 98 100 98 Intake/Output Intake/Output: Intake & Output 09/23/24 09/24/24 09/25/24 09/26/24 23:59 23:59 23:59 23:59 Intake Total 2362.5 4017.5 2620 450 Balance 2362.5 4017.5 2620 450 Meds/Results Medications: Active Medications Generic Name Dose Route Start Last Admin Trade Name Freq PRN Reason Stop Dose Admin Acetaminophen 650 mg 09/22/24 17:44 Acetaminophen 325 Mg Tablet PO Q6H PRN Mild Pain (1-3) or Fever Hydrocodone Bitart/Acetaminophen 1 tab 09/22/24 17:44 Hydrocodone/Acetaminophen (*Crx) 5-325 Mg Tablet PO Q6H PRN Pain Rated 4-6 Heparin Sodium (Porcine) 5,000 units 09/25/24 22:00 09/26/24 05:45 Heparin Sodium 5,000 Units/Ml Vial SUB-Q 5,000 units Q8HR SUMEET Administration Piperacillin/Tazobactam/Dextrose 3.375 gm in 50 mls @ 100 mls/hr 09/23/24 00:00 09/26/24 07:00 Zosyn 3.375 Gm/Ns 50 Ml IVPB Infused Q6HR SUMEET Infusion Morphine Sulfate 4 mg 09/22/24 17:44 Morphine Sulfate (*Crx) 4 Mg/Ml Inj IV PUSH Q4H PRN Pain Rated 7-10 Radiology Results: ITS Impressions Abdomen/Pelvis CT 09/22/24 15:42 IMPRESSION: 1. Small amount of free intraperineal gas and nonloculated free intraperitoneal fluid in the right pelvis was performed on the cecum and terminal ileum, latter demonstrating some associated wall thickening. This most likely related to perforated diverticulitis. Differential includes acute appendicitis although the appendix appears normal and is located in the periphery of the region of stranding and would consider this less likely. Differential would also include terminal ileitis such as in the setting of Crohn's disease. 2. Small sliding-type hiatal hernia. Labs Labs: Laboratory Results - last 24 hr 09/25/24 09/26/24 18:07 06:18 WBC 10.4 H 10.6 H RBC 3.36 L 3.36 L Hgb 9.7 L 9.7 L Hct 30.7 L 30.6 L MCV 91.4 91.1 MCH 28.9 28.9 MCHC 31.6 L 31.7 L RDW 13.1 13.0 Plt Count 305 351 MPV 9.5 9.8 Immature Gran % (Auto) 0.4 0.6 H Neut % (Auto) 81.7 H 79.4 H Lymph % (Auto) 10.2 L 11.7 L [place] % (Auto) 6.3 6.7 Eos % (Auto) 1.1 1.3 Baso % (Auto) 0.3 0.3 Lymph # (Auto) 1.06 1.24 [place] # (Auto) 0.7 H 0.7 H Eos # (Auto) 0.1 0.1 Baso # (Auto) 0.0 0.0 Abs Immat Gran (auto) 0.04 H 0.06 H Absolute Neuts (auto) 8.5 H 8.4 H Absolute Nucleated RBC 0.000 0.000 Nucleated RBC % 0.0 0.0 ESR > 140 H PT 15.2 H INR 1.2 APTT 27.6 Sodium 138 Potassium 3.4 Chloride 107 Carbon Dioxide 21 L Anion Gap 10 BUN 5 L D Creatinine 0.86 Estim Creat Clear Calc 62 Estimated GFR > 60 Glucose 97 Calcium 9.0 Total Bilirubin 0.5 AST 46 H ALT 40 H Alkaline Phosphatase 184 H C-Reactive Protein 16.0 H Total Protein 6.9 Albumin 3.3 L
[2024-09-26] MEDS: CALCIUM CARBONATE (TUMS) 500 MG (200 MG ELEMENTAL) PO (11:26)
--- NOTE | 2024-09-26 14:35 | P.DS_ITS ---
DS: Admitting Diagnosis Discharge Date 09/26/24 Admitting Diagnosis Acute diverticulitis Asymptomatic bacteriuria DS: Discharge Diagnosis Discharge Diagnosis (1) Diverticulitis of colon with perforation: Code(s): K57.20 - Diverticulitis of large intestine with perforation and abscess without bleeding Status: Acute (2) Asymptomatic bacteriuria: Code(s): R82.71 - Bacteriuria Status: Acute DS: Summary Hospital Course Reason for hospitalization: Copied from [facility] 09/22: 69 y/o F with no significant PMH presents here with lower abdominal pain. The patient presents here from home for further evaluation of right lower quadrant abdominal pain. She reports onset 2 days ago. Initially the pain was across her entire lower abdomen, as time has progressed it has moved to adjust the right lower quadrant. She describes the pain as dull, radiating/nonradiating, constant but can vary in severity, aggravated by ambulation - becomes sharper, and alleviated by rest/lack of movement. She reports she had a similar episode in early July but resolved without intervention and patient was not evaluated at that time - lasted around 4-5 days. She reports accompanying a few episodes of diarrhea on Friday when symptoms first started but has since resolved. Denies fever, chills, body aches, constipation or diaphoresis. She reports no hisotry of abdominal surgery history or significant GI history. Initial VS at presentation: 97.7? F, HR 130, R 20, 147/85, and 99% on RA. ED workup showed: WBC 7 3.3, glucose 114, lactic 0.9, creatinine 0.95 and GFR 58, AST 47/ALT 40, UA showed contaminant versus infection. CT of the abdomen/pelvis showed small amount of free intraperineal gas and nonloculated free intraperitoneal fluid in the right pelvis was performed on the cecum and terminal ileum, latter demonstrating some associated wall thickening. This most likely related to perforated diverticulitis and a small sliding-type hiatal hernia. Hospital Course: Diverticulitis of colon with perforation: 09/22 CT abd/pelvis: 1. Small amount of free intraperineal gas and nonloculated free intraperitoneal fluid in the right pelvis was performed on the cecum and terminal ileum, latter demonstrating some associated wall thickening. This most likely related to perforated diverticulitis. Differential includes acute appendicitis although the appendix appears normal and is located in the periphery of the region of stranding and would consider this less likely. Differential would also include terminal ileitis such as in the setting of Crohn's disease. 2. Small sliding-type hiatal hernia. LABS 09/22 Blood cultures negative x2 09/22 WBC 17, 09/26 10.6 09/26 CRP 16 09/26 ESR >140 She was started on empiric Zosyn and IV fluids. Pain controlled with minimal medications. Did not require pain medications for 48 hours prior to discharge. Tylenol, Vicodin, and morphine ordered prn but did not require prescription medications for discharge. Surgery followed during admission and planning to follow up in the clinic. --Needs an outpatient colonoscopy --Follow up with surgery --Tolerating diet, low fiber diet per general surgeon --Continued Augmentin and Flagyl for discharge --Outpatient labs, CBC, BMP, CRP, ESR in 1-2 weeks or per surgery at follow up Asymptomatic bacteriuria: Patient denied urinary symptoms. 09/22 UA: Turbid, 2+ protein, 4+ ketones stoma 2+ bilirubin, 2+ leuks, 6-10 RBC, 51-100 WBC, many epithelial cells, 4+ bacteria. Urine consistent with contamination and patient reports urine was not a clean catch. Unlikely a true infection. No culture resulted Patient was on iv zosyn for acute diverticulitis Status at Discharge Cognitive/behavioral status at discharge: A&Ox3 Time Spent with Patient Time attestation: Total time spent providing and/or coordinating discharge services: Time spent: Greater than 30 minutes Specific discharge activities: Patient education, chart review, discharge exam, prescription reconciliation DS: Data Data Completed and Pending Labs on day of discharge: Labs from last 24 hours 09/26/24 09/25/24 06:18 18:07 WBC 10.6 H 10.4 H RBC 3.36 L 3.36 L Hgb 9.7 L 9.7 L Hct 30.6 L 30.7 L MCV 91.1 91.4 MCH 28.9 28.9 MCHC 31.7 L 31.6 L RDW 13.0 13.1 Plt Count 351 305 MPV 9.8 9.5 Immature Gran % (Auto) 0.6 H 0.4 Neut % (Auto) 79.4 H 81.7 H Lymph % (Auto) 11.7 L 10.2 L [place] % (Auto) 6.7 6.3 Eos % (Auto) 1.3 1.1 Baso % (Auto) 0.3 0.3 Lymph # (Auto) 1.24 1.06 [place] # (Auto) 0.7 H 0.7 H Eos # (Auto) 0.1 0.1 Baso # (Auto) 0.0 0.0 Abs Immat Gran (auto) 0.06 H 0.04 H Absolute Neuts (auto) 8.4 H 8.5 H Absolute Nucleated RBC 0.000 0.000 Nucleated RBC % 0.0 0.0 ESR > 140 H PT 15.2 H INR 1.2 APTT 27.6 Sodium 138 Potassium 3.4 Chloride 107 Carbon Dioxide 21 L Anion Gap 10 BUN 5 L D Creatinine 0.86 Estim Creat Clear Calc 62 Estimated GFR > 60 Glucose 97 Calcium 9.0 Total Bilirubin 0.5 AST 46 H ALT 40 H Alkaline Phosphatase 184 H C-Reactive Protein 16.0 H Total Protein 6.9 Albumin 3.3 L Preliminary micro results at discharge 09/22/24 16:07 Blood Culture - Preliminary Blood 09/22/24 16:07 Blood Culture - Preliminary Blood Discharge Plan Discharge Attending physician on discharge: Courtney Fraser Consulting providers: Alexander Noriega; Ba Shi; Courtney Fraser Discharging Clinician: Courtney Fraser Anticipated Discharge Date/Time: 09/26/24 14:20 Patient Disposition: Home Activity: as tolerated Diet: low fiber Discharge Instructions: Continue low fiber diet for 2 weeks, then slowly transition to high fiber diet (avoid whole grains, bran, seeds, nuts, raw or dried fruits and vegetables). Low-fiber foods include refined grains such as white bread, rice, plain pasta, well cooked or canned vegetables without scans or seeds and tender well cooked meats. Prescriptions for antibiotics sent to pharmacy. Complete these as prescribed. Diarrhea may be expected while on antibiotics. May take probiotic or yogurt/Activia as needed. If constipation develops, may take OTC MiraLax. Take Tylenol or Ibuprofen as needed for pain. Return to ED for increasing pain, fevers, or other concerning symptoms. Follow up with Dr. Shi in 2 weeks. You may need to start a medication for your blood pressure. Follow up with your PCP in 1-2 weeks for a repeat blood pressure check Patient Instructions: Antibiotic Form, High Fiber Diet (DC), Low Fiber Diet (DC) Patient Language: Mohawk Stand Alone Forms: General Discharge Information Follow-up/Referrals: PHYSICIAN,PAINTER SHIPYARD [Primary Care Provider] - 2 Weeks Ba Shi MD [Physician] - Call for Appointment Discharge Medications: New metronidazole 500 mg tablet 500 mg PO Q8H 10 Days Qty: 30 0RF amoxicillin-pot clavulanate 875-125 mg tablet 1 tablet PO Q12H 10 Days Qty: 20 0RF Other Ambulatory Orders: Complete Blood Count with Diff (Routine) Timeframe: 1 Week Location: Determined by Patient Ordered By: Courtney Fraser Comprehensive Metabolic Panel (Routine) Timeframe: 1 Week Location: Determined by Patient Ordered By: Courtney Fraser CRP (Routine) Timeframe: 1 Week Location: Determined by Patient Ordered By: Courtney Fraser Erythrocyte Sedimentation Rate (Routine) Timeframe: 1 Week Location: Determined by Patient Ordered By: Courtney Fraser Date of admission: 09/22/24 18:53 Primary Care Provider: PHYSICIAN,PAINTER SHIPYARD Admitting Provider: Guanakito Peace Attending physician on admission: Guanakito Peace Condition: Stable Quality VTE Prophylaxis VTE prophylaxis: pharmacologic ordered Hospitalist MIPS Heart Failure (Exclusion) Patient has history of Heart Transplant or Left Ventricular Assistive Device?: No IF YES, STOP HERE Heart Failure (Qualifier) Patient has current or prior documentation of LVEF less than or equal to 40%, or mod/servere depressed LVSF?: No IF NO, STOP HERE
== END 2024-09-26 15:25 | disposition home or self-care (01) | DRG 392 ==
LOC: ANHED 17:09 → ANH3MEDSUR 17:56
PROVIDERS: Emergency Medicine; Nurse Practitioner Family; Student in an Organized Health Care Education/Training Program; Admitting Provider Internal Medicine; Emergency Provider Physician Assistant; Visit Provider Nurse Practitioner Acute Care
DX: K57.20 Diverticulitis of large intestine with perforation and abscess without bleeding (principal); R82.71 Bacteriuria; K44.9 Diaphragmatic hernia without obstruction or gangrene
CPT/HCPCS: 36415; 74177; 80048; 80053; 81001; 83605; 83690; 83735; 85025; 85027; 85610; 85652; 85730; 86140; 87040; 93005; 96361; 96365; 96375; 96376; 99285; A9270; G0378; J1644; J2270; J2405; J2543; J7030; J7120; Q9967

== ENCOUNTER 2024-11-08 07:08 | Day surgery (SDC) | payer MEDICARE, OTHER, SELFPAY ==
[2024-11-08] MEDS: LACTATED RINGERS 1,000 ML 150 ML IV CONT (07:40)
--- OUTSIDE RECORDS SUMMARY | 2024-11-08 07:43 | XMS_ITS | Clinical Summary ---
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 Gender Identity Female 10/15/2023 11:11 AM CDT Sexual Orientation Straight 10/15/2023 11 :11 AM CDT Plan of Treatment Health Maintenance Due Date Last Done Comments Colon Cancer Screening-Colonoscopy 1955 Depression Screening 1956 Fall Risk Assessment 1955 Hepatitis C Screening 1955 Osteoporosis Screening-Bone Density Scan 1955 DTaP/Tdap/Td Vaccine (1 - Tdap) 01/06/1967 Hepatitis B Screening 01/06/1974 Pneumococcal vaccine 65+ (1 of 1 - PCV) 01/06/2006 Zoster Vaccine (1 of 2) 01/06/2006 Well Visit 65+ 01/06/2021 Breast Cancer Screening-Mammogram 11/11/2024 11/12/2023, 06/28/2021, 05/31/2019, Additional history exists Influenza Vaccine (#1) 2024 02/18/2019, 2017 Procedures Procedure Name Priority Date/Time Associated Diagnosis Comments SCREENING MAMMOGRAM BILATERAL W ELÍAS Schedule Routine, Read Routine (OP Routine) 11/12/2023 10:10 AM CDT Screening mammogram, encounter for from Last 3 Months or Most Recently Relevant to Health Maintenance Results * Screening Mammogram Bilateral W Elías (11/12/2023 10:10 AM CDT) Anatomical Region Laterality Modality Breast Bilateral Mammography Narrative 11/13/2023 10:20 AM CDT Mammogram Technique: Bilateral Digital Breast Tomosynthesis, Bilateral C-view 2D Screening mammogram. Views obtained: bilateral craniocaudal and bilateral mediolateral oblique. Computer Aided Detection was performed. Mammogram Findings: The present examination has been compared to prior imaging studies performed at [facility] on 05/31/2019, 06/28/2021 and 07/31/2021. There are scattered areas of fibroglandular density. There is no suspicious abnormality in either breast. Impression: There is no mammographic evidence of malignancy. Annual screening mammography is recommended. OVERALL FINAL ASSESSMENT: BI-RADS CATEGORY 1: Negative. Procedure Note Amanda Gutierrez MD - 11/13/2023 Mammogram Technique: Bilateral Digital Breast Tomosynthesis, Bilateral C-view 2D Screening mammogram. Views obtained: bilateral craniocaudal and bilateral mediolateral oblique. Computer Aided Detection was performed. Mammogram Findings: The present examination has been compared to prior imaging studies performed at [facility] on 05/31/2019, 06/28/2021 and 07/31/2021. There are scattered areas of fibroglandular density. There is no suspicious abnormality in either breast. Impression: There is no mammographic evidence of malignancy. Annual screening mammography is recommended. OVERALL FINAL ASSESSMENT: BI-RADS CATEGORY 1: Negative. us Self Screening Mammogram IMG MAMMO PROCEDURES Fi nal Result from Last 3 Months or Most Recently Relevant to Health Maintenance Insurance [place] ANTH ACCESS MEDICARE [facility] MEDICARE [employer] [place] MEDICARE [employer] [place] Care Teams It Generalist Relationship Specialty Start Date End Date No, Physician PCP - General 01/09/18
[2024-11-08 07:57] VITALS: BMI 32.3
[2024-11-08 08:02] VITALS: BP 125/88; PULSE 112; RESP 16; TEMP 36.3; O2SAT 98
--- NOTE | 2024-11-08 09:01 | HP_ITS ---
This report was moved to the correct visit on 11/11/2024. The original report was signed by Doc Herbert MD on 11/08/24 0901. H&P: HPI History of Present Illness Date/Time: 11/08/24 09:00 Chief Complaint: Screening colonoscopy Narrative: This is the patient's first colonoscopy. There are no GI symptoms and there is no family history of colorectal cancer. Review of Systems Review of Systems: All systems reviewed & are unremarkable except as noted in HPI and below PMFSH Past Medical History Medical History No active medical problems Surgical History Surgical History No pertinent past surgical history Social History Social History Smoking status: Never smoker Alcohol intake: never Substance use: never Substance use type: does not use Do You Feel Safe in your Home?: Yes Lack of Transportation: No Lack of Food: Never True Current Housing: I Have Housing Concerned About Future Housing: No Difficulty Paying Gas/Electric Bills: No Difficulty Paying for Meds: No Currently Unemployed: No Education: Master's Degree or Higher Difficulty w/ Childcare or Family Care: No Living arrangements: with family Spiritual care concerns: No Meds Home Medications and Allergies Home Medications ?Medication ?Instructions ?Recorded ?Confirmed ?Type No Home Medications 11/02/24 11/02/24 History Allergies Allergy/AdvReac Type Severity Reaction Status Date / Time fluticasone (From Advair Allergy Hives Verified 11/08/24 07:55 Diskus) salmeterol (From Advair Allergy Hives Verified 11/08/24 07:55 Diskus) Exam Const: General: cooperative and healthy appearing Resp: Effort & Inspection: normal respiratory effort and able to speak in complete sentences Auscultation: clear to auscultation bilaterally Cardio: Rate: regular rate Rhythm: regular rhythm GI: Inspection: normal to inspection GI Palp: No No hepatosplenomegaly present Auscultation: normal bowel sounds Rectal Exam: deferred Skin: General skin exam: normal color Psych: Appearance: grossly normal Mental Status: mental status grossly normal Assessment and Plan Assessment and plan (1) Encounter for screening colonoscopy: Code(s): Z12.11 - Encounter for screening for malignant neoplasm of colon Status: Acute Assessment and Plan: The patient is deemed a good candidate for the procedure. Consent signed. Will proceed. Please be advised this is a medical document. It is intended for knig-ys-wyas communication. It is written in medical language and may contain unfamiliar abbreviations or verbiage. Medical documents are intended to carry relevant information, facts as evident, and the clinical opinion of the practitioner at the time of the encounter. This report may have been done utilizing a voice recognition system. Attempts have been made to correct errors. However, there may be uncorrected grammatical, spelling, and recognition errors present. The file time of this note does not necessarily represent the time the patient was seen. Report Initialized date/time: Doc Herbert MD 11/08/24900 Electronically signed by: Doc Herbert MD 11/08/24900
--- NOTE | 2024-11-08 09:06 | WPDANESEPPF ---
Anes - Initial Pre Proc Eval Procedure: Operation Date: 11/08/24 09:00 Proposed Procedures p Diagnostic Colonoscopy - Doc Herbert MD Date/Time: 11/08/24 09:06 Surgeon: Doc Herbert MD Pre Op Diagnosis: Diverticulitis of large intestine with perforation Patient Data Age: 69 Gender: F Height: 1.68 m Weight: 90.95 kg Last Vital Signs Temp 97.3 F L 11/08/24 08:02 Pulse 112 H 11/08/24 08:02 Resp 16 11/08/24 08:02 BP 125/88 11/08/24 08:02 Pulse Ox 98 11/08/24 08:02 O2 Del Method Room Air 11/08/24 08:02 Allergies Allergy/AdvReac Type Severity Reaction Status Date / Time fluticasone (From Advair Allergy Hives Verified 11/08/24 07:55 Diskus) salmeterol (From Advair Allergy Hives Verified 11/08/24 07:55 Diskus) Home Medications ?Medication ?Instructions ?Recorded ?Confirmed ?Type No Home Medications 11/02/24 11/02/24 History Patient hx anesthesia problems: none Family hx anesthesia problems: none Results Review: All pre-operative results and documents have been reviewed as part of the pre-operative evaluation. [facility] Past Medical History Medical History No active medical problems Surgical History Surgical History No pertinent past surgical history Social History Social History Smoking status: Never smoker Alcohol intake: never Substance use: never Substance use type: does not use Do You Feel Safe in your Home?: Yes Lack of Transportation: No Lack of Food: Never True Current Housing: I Have Housing Concerned About Future Housing: No Difficulty Paying Gas/Electric Bills: No Difficulty Paying for Meds: No Currently Unemployed: No Education: Master's Degree or Higher Difficulty w/ Childcare or Family Care: No Living arrangements: with family Spiritual care concerns: No Anes - Eval Final PreProcedure Day of Procedure 11/08/24 09:06 Heart: regular rate and rhythm Lungs: clear to auscultation Last oral intake: >/= 8 hours ASA classification: II Anesthetic plan: proceed Anesthesia type and monitoring: monitored anesthesia care Results Review: All pre-operative results and documents have been reviewed as part of the pre-operative evaluation. Informed Consent: The patient's anesthetic plan and its attendant risks and benefits were discussed with the patient/family/POA. Questions were solicited and answers provided to the satisfaction of the patient/family/POA.
--- NOTE | 2024-11-08 09:10 | WPDANESPN ---
Anes - Prog Note Post-Op Date/Time: 11/08/24 09:10 Vital Signs: Last Vital Signs Temp 97.3 F L 11/08/24 08:02 Pulse 112 H 11/08/24 08:02 Resp 16 11/08/24 08:02 BP 125/88 11/08/24 08:02 Pulse Ox 98 11/08/24 08:02 O2 Del Method Room Air 11/08/24 08:02 Pain Score (VAS): no Patient Feedback: Patient satisfied with anesthetic care.
--- NOTE | 2024-11-08 09:12 | WPDANESPN ---
Anes - Prog Note Post-Op Date/Time: 11/08/24 09:12 Vital Signs: Last Vital Signs Temp 97.3 F L 11/08/24 08:02 Pulse 112 H 11/08/24 08:02 Resp 16 11/08/24 08:02 BP 125/88 11/08/24 08:02 Pulse Ox 98 11/08/24 08:02 O2 Del Method Room Air 11/08/24 08:02 Pain Score (VAS): no Patient Feedback: Patient satisfied with anesthetic care.
--- NOTE | 2024-11-08 09:30 | WPDANESPN ---
Anes - Prog Note Post-Op Date/Time: 11/08/24 09:30 Vital Signs: Last Vital Signs Temp 97.3 F L 11/08/24 08:02 Pulse 112 H 11/08/24 08:02 Resp 16 11/08/24 08:02 BP 125/88 11/08/24 08:02 Pulse Ox 98 11/08/24 08:02 O2 Del Method Room Air 11/08/24 08:02 Pain Score (VAS): no Patient Feedback: Patient satisfied with anesthetic care.
[2024-11-08 09:33] VITALS: BP 130/76; PULSE 67; RESP 16; O2SAT 100
[2024-11-08 09:43] VITALS: BP 139/52; PULSE 82; RESP 18; O2SAT 100
[2024-11-08 09:53] VITALS: BP 147/75; PULSE 72; RESP 18; O2SAT 100
== END 2024-11-08 10:02 | disposition home or self-care (01) ==
PROVIDERS: PCP Family Medicine; Visit Provider Internal Medicine Gastroenterology
PROC: 0DJD8ZZ Inspection of Lower Intestinal Tract, Via Natural or Artificial Opening Endoscopic (ICD-10-PCS; CPT 45378; principal; 2024-11-08 09:00)
DX: Z12.11 Encounter for screening for malignant neoplasm of colon (principal); K57.30 Diverticulosis of large intestine without perforation or abscess without bleeding
CPT/HCPCS: G0121

== ENCOUNTER 2024-11-25 10:20 | Outpatient (CLI) | payer MEDICARE, OTHER, SELFPAY ==
--- OUTSIDE RECORDS SUMMARY | 2024-11-25 10:26 | XMS_ITS | Clinical Summary ---
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 There [...] compared to prior imaging studies performed at [facility] on 05/31/2019, 06/28/2021 and 07/31/2021. There [...] CHOICE PR[place] PPO [place] ANTH ACCESS MEDICARE [facility] MEDICARE [employer] [place] MEDICARE [employer] [place] Care Teams Rn Labor Delivery Relationship Specialty Start Date End Date No, Physician PCP - General 01/09/18
[2024-11-25 14:33] LABS: Hematocrit 41.3 % (37.0-47.0); Hemoglobin 12.5 g/dL (12.0-15.0); Immature Granulocyte Percent A 0.3 % (0-0.5); Lymphocytes Absolute Auto 1.68 K/mm3 (0.9-3.2); Mean Corpuscular HGB Conc 30.3 g/dl (32-36); Mean Corpuscular Hemoglobin 28.3 pg (26-34); Mean Corpuscular Volume 93.7 fl (80-100); Nucleated Red Blood Cells Absolute Auto 0.000 K/mm3 (0.0-0.012); Nucleated Red Blood Cells Perc 0.0 % (0.0-0.2); Platelet Count Result 409 k/mm3 (150-375); Red Blood Count 4.41 M/mm3 (4.2-5.4); White Blood Count 7.5 K/mm3 (4.5-10.0)
[2024-11-25 15:51] LABS: Alanine Aminotransferase 19 U/L (6-35); Albumin Level 4.2 g/dL (3.5-5.1); Alkaline Phosphatase 85 U/L (38-126); Anion Gap 11 mmol/L (4-12); Aspartate Amino Transferase 42 U/L (14-36); Bilirubin,Total 0.6 mg/dL (0.2-1.3); Blood Urea Nitrogen 12 mg/dL (7-17); Calcium 9.7 mg/dL (8.4-10.2); Carbon Dioxide 26 mmol/L (22-30); Chloride 102 mmol/L (98-107); Cholesterol 217 mg/dL (0-200); Estimated Glomerular Filt Rate 59; Glucose 95 mg/dL (65-110); HDL Direct 59 mg/dL; Potassium 4.4 mmol/L (3.4-5.0); Sodium 139 mmol/L (137-145); Total Protein 8.4 g/dL (6.3-8.2); Triglycerides 139 mg/dL (<150)
[2024-11-25 17:47] LABS: Hemoglobin A1C 5.1 % (<5.7)
== END 2024-11-25 10:21 | disposition home or self-care (01) ==
LOC: ANHGOSHLAB 10:21
PROVIDERS: PCP Family Medicine; Visit Provider Family Medicine
DX: Z13.1 Encounter for screening for diabetes mellitus (principal); Z11.59 Encounter for screening for other viral diseases; Z13.6 Encounter for screening for cardiovascular disorders; K57.20 Diverticulitis of large intestine with perforation and abscess without bleeding
CPT/HCPCS: 36415; 80053; 80061; 83036; 85025; 86803